=== PATIENT | male | born 1960 | race Caucasian/White ===

== ENCOUNTER 2016-09-17 08:59 | Day surgery (SDC) | payer MEDICARE, OTHER ==
[2016-09-17] MEDS ORDERED: Sodium Chloride 0.9% 5 ML Syringe FLUSH PRN (09:00)
[2016-09-17] MEDS ORDERED: Sodium Chloride 0.9% 1,000 ML IV SCH (09:00)
[2016-09-17] MEDS ORDERED: Albuterol/Ipratropium 3.0-0.5 MG/3 ML Neb Soln NEB ONE (09:59)
[2016-09-17] MEDS ORDERED: EPINEPHrine 1:10,000 1 MG/10 ML Syringe ONE (09:59)
[2016-09-17] MEDS ORDERED: Propofol 200 MG/20 ML SDV ONE ×2 (10:13→10:26)
[2016-09-17] MEDS ORDERED: Midazolam 1 MG/ML 2 ML SDV ONE ×2 (10:13→10:26)
--- NOTE | 2016-09-17 10:49 | PCM.OPNOTE ---
- General Post-Op/Procedure Note Date of Surgery/Procedure: 09/17/16 Operative Procedure(s): Colonoscopy Findings: Normal Anesthesia Technique: MAC Primary Surgeon: Lew Gonzalez Complications: None Condition: Good Free Text/Narrative:: INFORMED CONSENT: Patient is here today for elective colonoscopy. All aspects of this procedure have been discussed with the patient. All possible complications also, including possibility of perforation, infection, pain, bleeding and unknown complications. In the event of perforation patient may need to have abdominal exploration, colon resection, colostomy and even was discussed. Anesthetic complications were handled by anesthesia department. The patient understands fully well. Patient did not have any further questions for me at the end of my interview. The patient wishes for me to proceed. PREOPERATIVE DIAGNOSIS/INDICATIONS: [chronic diarrhea] POSTOPERATIVE DIAGNOSIS: [no evidence for inflammatory bowel disease] INSTRUMENT USED: Olympus videocolonoscope. ASA CLASSIFICATION: [2] ANESTHESIA: Continuous EKG, oximetry and intermittent blood pressure and respiratory monitoring were performed throughout the procedure. IV Versed and Fentanyl were administered. PROCEDURE PERFORMED: Colonoscopy POSITIONS OF PATIENT: Left lateral. RECTUM: Normal. SIGMOID COLON: Normal. DESCENDING COLON: Normal. SPLENIC FLEXURE: Normal. TRANSVERSE COLON: Normal. HEPATIC FLEXURE: Normal. ASCENDING COLON: Normal. CECUM: Normal. ILEOCECAL VALVE: Normal. BIOPSY: None. TOLERANCE: Excellent. COMPLICATIONS: None.
[2016-09-17 11:59] VITALS: BP 121/83
== END 2016-09-17 12:35 | disposition home or self-care (01) ==
LOC: KA.SDS 08:59
PROVIDERS: ATTEND Family Medicine
DX: R19.7 Diarrhea, unspecified (principal); I10 Essential (primary) hypertension; E11.9 Type 2 diabetes mellitus without complications; E78.5 Hyperlipidemia, unspecified; F32.9 Major depressive disorder, single episode, unspecified; Z88.1 Allergy status to other antibiotic agents; Z79.82 Long term (current) use of aspirin; Z79.4 Long term (current) use of insulin; Z79.899 Other long term (current) drug therapy; Z90.49 Acquired absence of other specified parts of digestive tract; Z98.890 Other specified postprocedural states
CPT/HCPCS: 45378; 82962; 94640; J2250; J2704; J7030; 00810

== ENCOUNTER 2017-01-21 15:47 | Inpatient (IN) | payer MEDICARE, OTHER ==
[2017-01-21] MEDS ORDERED: Albuterol/Ipratropium 3.0-0.5 MG/3 ML Neb Soln NEB PRN (17:14)
[2017-01-21] MEDS: Sodium Chloride 0.9% 1,000 ML IV SCH (17:30)
[2017-01-21] MEDS: Insulin Aspart 100 Units/ML 3 ML Pen SUBCUT SCH ×2 (18:29→21:07)
[2017-01-21] MEDS: Morphine 2 MG/ML Syringe IVPUSH PRN (18:36)
[2017-01-21] MEDS: Carvedilol 12.5 MG Tab PO SCH (18:51)
[2017-01-21] MEDS: Sodium Chloride 0.9% 5 ML Syringe FLUSH PRN (18:52)
[2017-01-21] MEDS: Nicotine 21 MG/24 Hr Patch TRDERM SCH (19:28)
[2017-01-21] MEDS: Fluticasone/Salmeterol 250-50 MCG Inhalation Powder 14/Diskus INH SCH (21:04)
[2017-01-21] MEDS: traZODone 50 MG Tab PO SCH (21:05)
[2017-01-21] MEDS: Gabapentin 300 MG Cap PO SCH (21:05)
[2017-01-22] MEDS: Sodium Chloride 0.9% 1,000 ML IV SCH (03:33)
[2017-01-22] MEDS: Morphine 2 MG/ML Syringe IVPUSH PRN ×2 (03:34→09:47)
[2017-01-22] MEDS: Omeprazole 20 MG Cap.CR PO SCH (06:14)
[2017-01-22 07:47] LABS: CHLORIDE,CL 107 mmol/L (98-115); SODIUM,NA 144 mmol/L (136-145)
[2017-01-22] MEDS: Fluticasone/Salmeterol 250-50 MCG Inhalation Powder 14/Diskus INH SCH ×2 (08:43→20:01)
[2017-01-22] MEDS ORDERED: Potassium Chloride 100 ML IV ONE (09:00)
[2017-01-22] MEDS ORDERED: Sodium Chloride 0.9% 500 ML IV SCH (09:00)
[2017-01-22] MEDS ORDERED: Calcium Chloride 10% 1 GM/10 ML Syringe IVPUSH ONE (09:00)
[2017-01-22] MEDS: Insulin Aspart 100 Units/ML 3 ML Pen SUBCUT SCH ×4 (09:45→20:57)
[2017-01-22] MEDS: Aspirin 325 MG Tab.EC PO SCH (09:46)
[2017-01-22] MEDS: Nicotine 21 MG/24 Hr Patch TRDERM SCH (09:46)
[2017-01-22] MEDS ORDERED: Iopamidol 612 MG/ML 75 ML Bottle IV ONE (09:48)
[2017-01-22] MEDS: Hydrochlorothiazide 12.5 MG Cap PO SCH (09:49)
[2017-01-22] MEDS: Gabapentin 300 MG Cap PO SCH ×2 (09:49→20:02)
[2017-01-22] MEDS: Sertraline 50 MG Tab PO SCH (09:50)
[2017-01-22] MEDS: Losartan 50 MG Tab PO SCH (09:57)
[2017-01-22] MEDS: amLODIPine 5 MG Tab PO SCH (09:57)
[2017-01-22] MEDS: Carvedilol 12.5 MG Tab PO SCH ×2 (09:57→17:28)
[2017-01-22] MEDS ORDERED: Sodium Chloride 0.9% 50 ML SDV FLUSH SCH (10:00)
--- NOTE | 2017-01-22 10:09 | PN ---
01/22/2017 PATIENT NAME: ROSMERY SHAW SUBJECTIVE: This is a 56-year-old male patient that was seen in the clinic yesterday by Richa Millan PA-C. The patient states that he had been having severe diarrhea since Thursday. He says he was having too many loose stools that he did not even count. He says he has been having abdominal pain all the way across his abdomen. He denies any fever or chills. He states that he has had hard time trying to keep any liquids down. He would drink some, and then he has diarrhea stool. He denied any nausea or vomiting, but stated that his stomach really hurt, and he could not eat much. Today, he states he still having pain that comes and goes in his abdomen. He says his stools have slowed down. OBJECTIVE: VITAL SIGNS: Today, temperature is 98.6, pulse is 96, blood pressure is 104/60, respiratory rate is 20, and oxygen saturations on room air 92% to 93%. GENERAL: This is a white male, in no acute distress. HEART: Heart tones are regular rate and rhythm. No murmurs identified. LUNGS: Sounds are clear throughout lung ambrose. Diminished at bilateral bases. ABDOMEN: Soft, somewhat tender with deep palpation. Bowel sounds are present. x4. LABORATORY DATA: The patient's lab work that was obtained today. CBC shows a white count within normal range at 8.8. Chemistry panel shows potassium low at 3.3, calcium low at 6.6, albumin is 3.16, and corrected calcium is 7.3. The patient's amylase that was drawn yesterday was within normal range at 32, and lipase within normal range at 119. The rest of the patient's comprehensive metabolic panel is unremarkable. IMPRESSION AND PLAN: 1. Gastroenteritis with elevated liver function tests and dehydration. Plan: We will continue with the patient IV hydration with normal saline at 100 mL/h. We are going to obtain a CT scan of the abdomen and pelvis with contrast this morning here at 10 o'clock. The patient's AST that was obtained yesterday in the clinic was elevated at 50, today to normal range at 27. The patient's ALT that was obtained in the clinic yesterday was elevated at 74. Today, repeated on normal range at 59. The patient can have a clear liquid diet after the CAT scan is completed. For the abdominal pain, he can morphine 1 to 2 mg IV as needed. We are also going to obtain a magnesium level today, this is pending at this time. 2. History of hypertension. Plan: Continue with Coreg 12.5 mg twice a day along with losartan 50 mg daily. Norvasc 10 mg daily, and HCTZ 12.5 mg daily. Blood pressure has been controlled. 3. History of chronic obstructive pulmonary disease. Plan: Continue with Advair twice daily along with DuoNeb as needed. 4. History of peripheral neuropathy. Plan: Continue with gabapentin 300 mg twice a day. 5. Diabetes mellitus type 2. Plan: Continue with blood sugar checks four times a day. We will cover with sliding scale insulin medium dose NovoLog. We will continue with Levemir 20 units subcu at bedtime. 6. History of smoking. Plan: Continue with nicotine patch. 7. Gastroesophageal reflux disease. Plan: Continue with 40 mg omeprazole daily. 8. Hypokalemia. Plan: The patient's potassium level is low today at 3.3. We are going to replace the patient's potassium today with 20 mEq of potassium chloride IV cocktail. Repeat potassium level at 3:00 PM today. 9. History of depression. Plan: Continue with Zoloft 20 mg daily. 10.Insomnia. Plan: Continue with trazodone 75 mg at bedtime as needed for sleep. 11.Hypocalcemia. Plan: The patient's calcium level today on the panel was low at 6.6, corrected calcium came on at 7.3. We are going to give the patient calcium chloride 1 g IV push. Recheck a comprehensive panel tomorrow. 12.Hypomagnesemia. Plan: Magnesium level low at 0.7, 2 grams Magnesium sulfate IV given. Repeat magnesium level at 3:00 PM. /[id number]/MODL MTDD
[2017-01-22] MEDS ORDERED: Magnesium Sulfate/Water 50 ML IV ONE (12:00)
--- NOTE | 2017-01-22 15:41 | PN ---
01/22/2017 PATIENT NAME: ROSMERY SHAW SUBJECTIVE: This is a 56-year-old patient. This progress report is for 22 of January. This is a very pleasant 56-year-old patient was admitted yesterday because of abdominal pain. We had ordered a CAT scan today. The CAT scan shows mild rectal sigmoid and cecal colitis. The patient's abdominal pain is somewhat improved. However in view of the CT scan report and the clinical findings, we will start him on Zosyn 3.375 g every 8 hours and see how he does. We will keep a close eye on him. /[id number]/MODL
[2017-01-22 17:02] LABS: CHLORIDE,CL 105 mmol/L (98-115); SODIUM,NA 139 mmol/L (136-145)
[2017-01-22] MEDS: Piperacillin/Tazobactam/Dext 50 ML IV SCH (17:04)
[2017-01-22] MEDS ORDERED: Potassium Chloride 20 MEQ in Premix Bag 1 BAG IV ONE (17:30)
[2017-01-22] MEDS ORDERED: Calcium Gluconate 1 GM in Sodium Chloride 0.9% 100 ML IV ONE (18:30)
[2017-01-22] MEDS: traZODone 50 MG Tab PO SCH (20:02)
[2017-01-22] MEDS: Insulin Detemir 100 Units/ML 3 ML Pen SUBCUT SCH (21:51)
[2017-01-23] MEDS: Piperacillin/Tazobactam/Dext 50 ML IV SCH ×4 (00:02→23:21)
[2017-01-23] MEDS: Sodium Chloride 0.9% 1,000 ML IV SCH (00:12)
[2017-01-23] MEDS: Omeprazole 20 MG Cap.CR PO SCH (06:48)
[2017-01-23 07:48] LABS: CHLORIDE,CL 111 mmol/L (98-115); SODIUM,NA 147 mmol/L (136-145)
[2017-01-23] MEDS: Insulin Aspart 100 Units/ML 3 ML Pen SUBCUT SCH ×4 (07:59→20:50)
[2017-01-23] MEDS: Nicotine 21 MG/24 Hr Patch TRDERM SCH (08:10)
[2017-01-23] MEDS: Sertraline 50 MG Tab PO SCH (08:11)
[2017-01-23] MEDS: Aspirin 325 MG Tab.EC PO SCH (08:11)
[2017-01-23] MEDS: Gabapentin 300 MG Cap PO SCH ×2 (08:12→20:49)
[2017-01-23] MEDS: Hydrochlorothiazide 12.5 MG Cap PO SCH (08:12)
[2017-01-23] MEDS: Carvedilol 12.5 MG Tab PO SCH ×2 (08:13→17:34)
[2017-01-23] MEDS: Losartan 50 MG Tab PO SCH (08:14)
[2017-01-23] MEDS: amLODIPine 5 MG Tab PO SCH (08:14)
[2017-01-23] MEDS: Fluticasone/Salmeterol 250-50 MCG Inhalation Powder 14/Diskus INH SCH ×2 (08:17→20:45)
[2017-01-23] MEDS: Morphine 2 MG/ML Syringe IVPUSH PRN ×4 (08:32→23:17)
[2017-01-23] MEDS ORDERED: Sodium Chloride 0.45% with KCl 1,000 ML IV SCH ×2 (08:45→10:15)
[2017-01-23] MEDS ORDERED: Calcium Gluconate 10% 1 GM/10 ML SDV IVPUSH ONE (08:48)
--- NOTE | 2017-01-23 10:18 | PN ---
01/23/2017 PATIENT NAME: ROSMERY SHAW SUBJECTIVE: This is a 56-year-old patient that was having multiple diarrhea stools at home for about four to five days, then he presented in the clinic with abdominal pain and diarrhea. The patient states that he is tolerating the clear liquid diet. He says the abdominal pain is doing better. He just feels overall better today. OBJECTIVE: VITAL SIGNS: Today, the patient's weight is 154 pounds. Temperature is 98.9, pulse is 86, blood pressure is 126/64, respiratory rate is 20, and oxygen saturations on 2 L oxygen is 94%. GENERAL: This is an elderly white gentleman, in no acute distress. LUNGS: Sounds are diminished at bilateral bases. Clear at upper lobes. HEART: Sounds are regular rate and rhythm. No murmurs identified. ABDOMEN: Soft and nontender. Bowel sounds are present x4. He does have a little bit of tenderness with deep palpation in the left lower quadrant. LABORATORY DATA: The patient's lab work today; comprehensive metabolic panel shows a sodium slightly high at 147, potassium 3.5, BUN 6, and creatinine 0.68. The patient's calcium is 7.0, corrected calcium 7.8, and magnesium is low at 1.4. The patient's total protein is low at 6.2, and albumin is low at 2.94. Liver enzymes are within normal range. AST is 25, ALT is 50. IMPRESSION AND PLAN: 1. Colitis. Plan: We will continue with Zosyn IV every 6 hours. We are going to change the patient's IV fluids to one-half normal saline with 20 mEq of potassium chloride to decrease the rate to 50 mL an hour from 100 mL an hour. The patient's CAT scan of the abdomen and pelvis that was obtained yesterday did show colitis. Please see the report. The patient's AST and ALT have returned to normal limits. We are going to start the patient on some Lomotil. He can take as needed. We will also going to obtain a Clostridium difficile stool specimen today. We will continue with clear liquid diet. 2. History of hypertension. Plan: Continue with Coreg 12.5 mg twice a day along with losartan 50 mg daily. We are also going to have the patient continue with Norvasc 10 mg daily and HCTZ 12.5 mg daily. Blood pressure has been controlled. 3. History of chronic obstructive pulmonary disease. Plan: Continue with Advair Diskus twice a day along with DuoNeb as needed. 4. History of peripheral neuropathy. Plan: Continue with gabapentin 300 mg twice a day. 5. Diabetes mellitus type 2. Plan: Continue with blood sugar checks four times a day. The patient does have medium dose NovoLog sliding scale ordered for high blood sugars. Also, continue with Levemir 20 units subcu at bedtime. 6. History of smoking. Plan: Continue with nicotine patch. 7. Gastroesophageal reflux disease. Plan: Continue with omeprazole 40 mg daily. 8. Hypokalemia. Plan: The patient's potassium level is 3.5 today. We are going to give the patient some potassium through his IV fluids. We are going to add 20 mEq potassium chloride to his IV fluids. We will repeat a comprehensive metabolic panel in the morning. 9. History of depression. Plan: Continue with Zoloft 20 mg daily. 10.History of insomnia. Plan: Continue with trazodone 75 mg at bedtime as needed for sleep. 11.Hypocalcemia. Plan: The patient's calcium level today is 7.0, corrected calcium of 7.8. We are going to give the patient 1 g of calcium gluconate IV push today and recheck lab work in the morning. 12.Hypomagnesemia. Plan: The patient's magnesium level is low today at 1.4. We are going to start the patient on magnesium oxide 500 mg twice a day, and recheck magnesium level tomorrow morning. /[id number]/MODL MTDD
[2017-01-23] MEDS: Atropine/Diphenoxylate 0.025-2.5 MG Tab PO PRN ×2 (10:30→20:38)
[2017-01-23] MEDS: Magnesium Oxide 500 MG Tab PO SCH ×2 (10:30→20:48)
[2017-01-23] MEDS: Sodium Chloride 0.9% 5 ML Syringe FLUSH PRN (18:57)
[2017-01-23] MEDS: Insulin Detemir 100 Units/ML 3 ML Pen SUBCUT SCH (20:45)
[2017-01-23] MEDS: traZODone 50 MG Tab PO SCH (20:49)
[2017-01-24] MEDS: Morphine 2 MG/ML Syringe IVPUSH PRN (04:40)
[2017-01-24] MEDS: Atropine/Diphenoxylate 0.025-2.5 MG Tab PO PRN ×3 (04:45→21:05)
[2017-01-24] MEDS: Omeprazole 20 MG Cap.CR PO SCH (06:27)
[2017-01-24] MEDS: Insulin Aspart 100 Units/ML 3 ML Pen SUBCUT SCH ×4 (07:19→21:06)
[2017-01-24 07:44] LABS: CHLORIDE,CL 109 mmol/L (98-115); SODIUM,NA 147 mmol/L (136-145)
[2017-01-24] MEDS: Fluticasone/Salmeterol 250-50 MCG Inhalation Powder 14/Diskus INH SCH ×2 (08:05→21:02)
[2017-01-24] MEDS: Piperacillin/Tazobactam/Dext 50 ML IV SCH ×3 (08:05→23:15)
[2017-01-24] MEDS: Losartan 50 MG Tab PO SCH (08:05)
[2017-01-24] MEDS: Carvedilol 12.5 MG Tab PO SCH ×2 (08:05→17:34)
[2017-01-24] MEDS: Aspirin 325 MG Tab.EC PO SCH (08:06)
[2017-01-24] MEDS: Nicotine 21 MG/24 Hr Patch TRDERM SCH (08:06)
[2017-01-24] MEDS: Hydrochlorothiazide 12.5 MG Cap PO SCH (08:07)
[2017-01-24] MEDS: Gabapentin 300 MG Cap PO SCH ×2 (08:07→21:03)
[2017-01-24] MEDS: amLODIPine 5 MG Tab PO SCH (08:07)
[2017-01-24] MEDS: Sertraline 50 MG Tab PO SCH (08:07)
[2017-01-24] MEDS: Magnesium Oxide 500 MG Tab PO SCH ×2 (08:07→21:12)
[2017-01-24] MEDS ORDERED: Magnesium Oxide 500 MG Tab PO ONE (09:30)
[2017-01-24] MEDS ORDERED: Calcium Gluconate 10% 1 GM/10 ML SDV IVPUSH ONE (09:33)
--- NOTE | 2017-01-24 10:07 | PCM.PN ---
- General Info Date of Service: 01/24/17 Subjective Update: Patient reports he is feeling some better, but continues to have generalized abdominal pain. He reports 6 loose stools in the last 24 hours. He has taken the 1/2 tab of lomotil without much relief. He has been able to tolerate his soft diet without nausea or vomiting. Functional Status: Reports: tolerating diet, ambulating, urinating. Denies: pain controlled - Review of Systems General: Denies: Fever HEENT: Reports: headaches Pulmonary: Denies: shortness of breath, cough Cardiovascular: Denies: Chest Pain, Edema Gastrointestinal: Reports: Abdominal pain, Diarrhea. Denies: Decreased appetite , Nausea, Vomiting - Patient Data Vitals - most recent: Last Vital Signs Temp 97.7 F 01/24/17 06:26 Pulse 72 01/24/17 08:05 Resp 16 01/24/17 06:26 BP 139/80 01/24/17 08:07 Pulse Ox 94 L 01/24/17 06:26 Weight - most recent: 154 lb I&O - last 24 hours: Intake & Output 01/23/17 01/24/17 01/24/17 22:59 06:59 14:59 Intake Total 1771 726 Output Total 1075 800 Balance 696 -74 Lab Results last 24 hrs: Laboratory Results - last 24 hr 01/23/17 01/23/17 01/23/17 Range/Units 11:57 17:30 20:36 WBC (5.0-10.0) 10^3/uL RBC (4.50-6.00) 10^6/uL Hgb (13.0-17.0) g/dL Hct (40.0-52.0) % MCV (82.0-92.0) fL MCH (27.0-31.0) pg MCHC (32.0-36.0) g/dL RDW (11.5-14.5) % Plt Count (150-300) 10^3/uL MPV (7.4-10.4) fL Neut % (Auto) (50.0-70.0) % Lymph % (Auto) (20.0-40.0) % Turner % (Auto) (2.0-8.0) % Eos % (Auto) (1.0-3.0) % Baso % (Auto) (0.0-1.0) % Neut # (Auto) (2.5-7.0) 10^3/uL Lymph # (Auto) (1.0-4.0) 10^3/uL Turner # (Auto) (0.1-0.8) 10^3/uL Eos # (Auto) (0.1-0.3) 10^3/uL Baso # (Auto) (0.0-0.1) 10^3/uL Sodium (136-145) mmol/L Potassium (3.3-5.3) mmol/L Chloride (98-115) mmol/L Carbon Dioxide (21.0-32.0) mmol/L BUN (6-25) mg/dL Creatinine (0.51-1.17) mg/dL Est Cr Clr Drug Dosing mL/min Estimated GFR (MDRD) mL/min Glucose (70-110) mg/dL POC Glucose 115 H 90 266 H (74-106) mg/dl Calcium (8.7-10.3) mg/dL Magnesium (1.8-2.4) mg/dL Total Bilirubin (0.2-1.0) mg/dL AST (15-37) U/L ALT (12-78) U/L Alkaline Phosphatase (46-116) IU/L Total Protein (6.4-8.2) g/dL Albumin (3.00-4.80) g/dL 01/24/17 01/24/17 01/24/17 Range/Units 03:49 04:24 06:30 WBC (5.0-10.0) 10^3/uL RBC (4.50-6.00) 10^6/uL Hgb (13.0-17.0) g/dL Hct (40.0-52.0) % MCV (82.0-92.0) fL MCH (27.0-31.0) pg MCHC (32.0-36.0) g/dL RDW (11.5-14.5) % Plt Count (150-300) 10^3/uL MPV (7.4-10.4) fL Neut % (Auto) (50.0-70.0) % Lymph % (Auto) (20.0-40.0) % Turner % (Auto) (2.0-8.0) % Eos % (Auto) (1.0-3.0) % Baso % (Auto) (0.0-1.0) % Neut # (Auto) (2.5-7.0) 10^3/uL Lymph # (Auto) (1.0-4.0) 10^3/uL Turner # (Auto) (0.1-0.8) 10^3/uL Eos # (Auto) (0.1-0.3) 10^3/uL Baso # (Auto) (0.0-0.1) 10^3/uL Sodium (136-145) mmol/L Potassium (3.3-5.3) mmol/L Chloride (98-115) mmol/L Carbon Dioxide (21.0-32.0) mmol/L BUN (6-25) mg/dL Creatinine (0.51-1.17) mg/dL Est Cr Clr Drug Dosing mL/min Estimated GFR (MDRD) mL/min Glucose (70-110) mg/dL POC Glucose 61 L 115 H 88 (74-106) mg/dl Calcium (8.7-10.3) mg/dL Magnesium (1.8-2.4) mg/dL Total Bilirubin (0.2-1.0) mg/dL AST (15-37) U/L ALT (12-78) U/L Alkaline Phosphatase (46-116) IU/L Total Protein (6.4-8.2) g/dL Albumin (3.00-4.80) g/dL 01/24/17 01/24/17 Range/Units 07:05 07:05 WBC 8.8 (5.0-10.0) 10^3/uL RBC 4.18 L (4.50-6.00) 10^6/uL Hgb 12.2 L (13.0-17.0) g/dL Hct 35.3 L (40.0-52.0) % MCV 84.3 (82.0-92.0) fL MCH 29.2 (27.0-31.0) pg MCHC 34.6 (32.0-36.0) g/dL RDW 14.6 H (11.5-14.5) % Plt Count 291 (150-300) 10^3/uL MPV 8.0 (7.4-10.4) fL Neut % (Auto) 66.5 (50.0-70.0) % Lymph % (Auto) 19.8 L (20.0-40.0) % Turner % (Auto) 10.8 H (2.0-8.0) % Eos % (Auto) 2.0 (1.0-3.0) % Baso % (Auto) 0.9 (0.0-1.0) % Neut # (Auto) 5.8 (2.5-7.0) 10^3/uL Lymph # (Auto) 1.7 (1.0-4.0) 10^3/uL Turner # (Auto) 1.0 H (0.1-0.8) 10^3/uL Eos # (Auto) 0.2 (0.1-0.3) 10^3/uL Baso # (Auto) 0.1 (0.0-0.1) 10^3/uL Sodium 147 H (136-145) mmol/L Potassium 3.1 L (3.3-5.3) mmol/L Chloride 109 (98-115) mmol/L Carbon Dioxide 30.5 (21.0-32.0) mmol/L BUN 3 L (6-25) mg/dL Creatinine 0.61 (0.51-1.17) mg/dL Est Cr Clr Drug Dosing 111.88 mL/min Estimated GFR (MDRD) > 60 mL/min Glucose 107 (70-110) mg/dL POC Glucose (74-106) mg/dl Calcium 7.2 L (8.7-10.3) mg/dL Magnesium 1.3 L (1.8-2.4) mg/dL Total Bilirubin 0.3 (0.2-1.0) mg/dL AST 21 (15-37) U/L ALT 42 (12-78) U/L Alkaline Phosphatase 72 (46-116) IU/L Total Protein 6.4 (6.4-8.2) g/dL Albumin 3.06 (3.00-4.80) g/dL Francois Results last 24 hrs: Microbiology 01/23/17 09:50 Clostridium difficile Toxin A&B (M) - Final Stool / Feces - Stool, Liquid NEGATIVE CDIFF TOXIN Med Orders - Current: Current Medications Acetaminophen (Tylenol Extra Strength) 500 mg PO Q6H [facility] Albuterol/Ipratropium (Duoneb 3.0-0.5 Mg/3 Ml) 3 ml NEB Q6HR PRN PRN Reason: Shortness of Breath Last Admin: 01/23/17 08:51 Dose: 3 ml Amlodipine Besylate (Norvasc) 10 mg PO DAILY [facility] Last Admin: 01/24/17 08:07 Dose: 10 mg Aspirin (Ecotrin) 325 mg PO DAILY [facility] Last Admin: 01/24/17 08:06 Dose: 325 mg Calcium Gluconate (Calcium Gluconate) 2 gm IVPUSH ONETIME ONE Stop: 01/24/17 09:34 Carvedilol (Coreg) 12.5 mg PO BIDMEALS [facility] Last Admin: 01/24/17 08:05 Dose: 12.5 mg Diphenoxylate HCl/Atropine (Lomotil 0.025-2.5 Mg) 1 tab PO TID PRN PRN Reason: Diarrhea Gabapentin (Neurontin) 300 mg PO BID [facility] Last Admin: 01/24/17 08:07 Dose: 300 mg Hydrochlorothiazide (Hydrochlorothiazide) 12.5 mg PO DAILY [facility] Last Admin: 01/24/17 08:07 Dose: 12.5 mg Piperacillin/Tazobactam/Dextrose (Zosyn In Dextrose Iso-Osmotic 3.375 Gm) 50 mls @ 100 mls/hr IV Q8H [facility] Last Admin: 01/24/17 08:05 Dose: 100 mls/hr Potassium Chloride/Sodium Chloride (1/2 Ns With 20 Meq Kcl) 1,000 mls @ 25 mls/ hr IV ASDIRECTED [facility] Insulin Aspart (Novolog) 0 unit SUBCUT 0730,1130,1730,2100 [facility] PRN Reason: Protocol Last Admin: 01/24/17 07:19 Dose: Not Given Insulin Detemir (Levemir) 20 unit SUBCUT BEDTIME [facility] Last Admin: 01/23/17 20:45 Dose: 20 units Losartan Potassium (Cozaar) 50 mg PO DAILY [facility] Last Admin: 01/24/17 08:05 Dose: 50 mg Magnesium Oxide (Magnesium Oxide) 1,000 mg PO BID [facility] Magnesium Oxide (Magnesium Oxide) 500 mg PO ONETIME ONE Stop: 01/24/17 09:31 Morphine Sulfate (Morphine) 1 - 2 mg IVPUSH Q4H PRN PRN Reason: Pain Last Admin: 01/24/17 04:40 Dose: 2 mg Nicotine (Habitrol) 21 mg TRDERM DAILY [facility] Last Admin: 01/24/17 08:06 Dose: 21 mg Omeprazole (Omeprazole) 40 mg PO ACBREAKFAST [facility] Last Admin: 01/24/17 06:27 Dose: 40 mg Potassium Chloride (Klor-Con M20) 20 meq PO BID [facility] Fluticasone/Salmeterol (Advair Diskus 250-50) 1 puff INH BID [facility] Last Admin: 01/24/17 08:05 Dose: 1 puff Sertraline HCl (Zoloft) 50 mg PO DAILY [facility] Last Admin: 01/24/17 08:07 Dose: 50 mg Sodium Chloride (Syrex Flush) 5 ml FLUSH Q8HR PRN PRN Reason: Keep Vein Open Last Admin: 01/23/17 18:57 Dose: 5 ml Trazodone HCl (Trazodone) 75 mg PO BEDTIME [facility] Last Admin: 01/23/17 20:49 Dose: 75 mg Discontinued Medications Diphenoxylate HCl/Atropine (Lomotil 0.025-2.5 Mg) 0.5 tab PO TID PRN PRN Reason: Diarrhea Last Admin: 01/24/17 04:45 Dose: 0.5 tab Sodium Chloride (Normal Saline) 1,000 mls @ 100 mls/hr IV ASDIRECTED [facility] Last Admin: 01/23/17 00:12 Dose: 100 mls/hr Sodium Chloride (Normal Saline) 500 mls @ 500 mls/hr IV .BOLUS [facility] Potassium Chloride (Kcl 20 Meq In Water 100 Ml) 100 mls @ 50 mls/hr IV ONETIME ONE Stop: 01/22/17 10:59 Last Admin: 01/22/17 11:18 Dose: 50 mls/hr Calcium Gluconate 1 gm/ Sodium (Chloride) 60 mls @ 360 mls/hr IV ONETIME ONE Stop: 01/22/17 09:39 Last Admin: 01/22/17 10:14 Dose: 360 mls/hr Magnesium Sulfate (Magnesium Sulfate 2 Gm In Water 50 Ml) 50 mls @ 25 mls/hr IV ONETIME ONE Stop: 01/22/17 13:59 Last Admin: 01/22/17 13:33 Dose: 25 mls/hr Calcium Gluconate 1 gm/ Sodium (Chloride) 110 mls @ 100 mls/hr IV ONETIME ONE Stop: 01/22/17 19:35 Last Admin: 01/22/17 19:59 Dose: 100 mls/hr Potassium Chloride 20 meq/ (Premix) 100 mls @ 50 mls/hr IV ONETIME ONE Stop: 01/22/17 19:29 Last Admin: 01/22/17 17:52 Dose: 50 mls/hr Potassium Chloride/Sodium Chloride (1/2 Ns With 20 Meq Kcl) 1,000 mls @ 50 mls/ hr IV ASDIRECTED [facility] Calcium Gluconate 1 gm/ Sodium (Chloride) 60 mls @ 360 mls/hr IV ONETIME ONE Stop: 01/23/17 10:09 Last Admin: 01/23/17 10:32 Dose: 360 mls/hr Potassium Chloride/Sodium Chloride (1/2 Ns With 20 Meq Kcl) 1,000 mls @ 50 mls/ hr IV ASDIRECTED [facility] Last Admin: 01/23/17 13:43 Dose: 50 mls/hr Iopamidol (Isovue-300 (61%)) 75 ml IV ONETIME ONE Stop: 01/22/17 09:49 Last Admin: 01/22/17 11:14 Dose: 75 ml Magnesium Oxide (Magnesium Oxide) 500 mg PO BID [facility] Last Admin: 01/24/17 08:07 Dose: 500 mg Morphine Sulfate (Morphine) 1 - 2 mg IVPUSH Q6H PRN PRN Reason: Abdominal Pain Last Admin: 01/23/17 14:32 Dose: 2 mg Sodium Chloride (Normal Saline) 50 ml FLUSH ASDIRECTED [facility] Stop: 01/22/17 12:00 Last Admin: 01/22/17 11:14 Dose: 50 ml - Exam Quality Assessment: supplemental oxygen (2 liters 93%), DVT prophylaxis (Score of 2-Anthony stockings). No: urine catheter General: alert, oriented, cooperative, no acute distress Lungs: Normal respiratory effort, Decreased breath sounds (throughout). No: Crackles, Rhonchi, Wheezing Cardiovascular: Regular Rate, Regular Rhythm, No Murmurs Abdomen: soft, no distension, guarding, tenderness (generalized), abnormal bowel sounds (hyperactive bowel sounds x 4) Extremities: no edema Skin: warm, dry, intact Neurological: normal speech Psy/Mental Status: alert, normal affect, normal mood. No: anxious - Problem List Review Problem List Initiated/Reviewed/Updated: Yes - My Orders Last 24 Hours: My Active Orders 01/24/17 09:28 Telemetry Monitoring [Cardiac Monitoring] [RC] . DIRECTED 01/24/17 09:30 Acetaminophen [Tylenol Extra Strength] 500 mg PO Q6H Atropine/Diphenoxylate [Lomotil 0.025-2.5 MG] 1 tab PO TID PRN Magnesium Oxide 500 mg PO ONETIME ONE Potassium Chloride [Klor-Con M20] 20 meq PO BID 01/24/17 09:33 Calcium Gluconate 2 gm IVPUSH ONETIME ONE 01/24/17 09:34 Communication Order [RC] ROUTINE 01/24/17 09:45 Sodium Chloride 0.45% with KCl [1/2 NS with 20 mEq KCl] 1,000 ml IV ASDIRECTED 01/24/17 21:00 Magnesium Oxide 1,000 mg PO BID 01/25/17 05:11 COMPREHENSIVE METABOLIC PN,CMP [CHEM] AM MAGNESIUM [CHEM] AM - Plan Plan:: PRIMARY ASSESSMENT/PLAN: Mild rectosigmoid & cecal colitis. Cdiff negative. Continue IV Zosyn. Decrease IV fluids to 1/2 NS with 20 KCL to 25 mL/hr. Patient's oral intake adequate. Continue soft diet. Hold morphine. Trial of tylenol 500 mg po QID for abdominal pain. Change lomotil to 1 tab po TID PRN. Hypokalemia. K 3.1. Add oral potassium 20 mEq BID. Continue IV fluids with potassium. Repeat labs in AM. Patient will be placed on telemetry today. Hypomagnesemia. Mg 1.3. Increase magnesium to 1000 mg po BID. Hypocalcemia. Serum calcium 7.2 with a corrected calcium of 7.9. Will give calcium gluconate 2 gm IV push slowly today. COPD. Chest x-ray revealed asthma versus COPD-no infiltrates or effusions. Patient currently on 2 liter of oxygen at 93%. Will try to discontinue this today as he does not use oxygen at home. Get patient up in halls walking. Continue advair and duonebs. SECONDARY ASSESSMENT/PLAN: IBS-diarrhea predominant. Patient unable to determine if his stools are back to his baseline. He has tried imodium and lomotil in the past for this without improvement. He would be willing to try another medication for this condition. Would consider questran or viberzi after acute infection is resolved. Hypertension, stable. Continue current medication regimen. Peripheral neuropathy. Continue gabapentin. Type 2 diabetes mellitus. Continue accuchecks QID with sliding scale. Continue levemir. Tobacco abuse disorder. Continue nicotine patch. GERD. Continue omeprazole. Depression. Continue zoloft. Insomnia. Continue trazodone. DVT prophylaxis. Score of 2. Anthony stockings applied. Overall plan: Correct electrolyte imbalances and repeat labs in the AM. Continue IV zosyn. Discontinue oxygen. Get patient up in halls today. Monitor pain. The treatment plan was reviewed with Dr. Paez. He is in agreement with the above plan of care.
[2017-01-24] MEDS ORDERED: Calcium Gluconate 2 GM in Sodium Chloride 0.9% 100 ML IV ONE (10:15)
[2017-01-24] MEDS: Potassium Chloride 20 MEQ Tab.ER PO SCH ×2 (10:26→21:02)
[2017-01-24] MEDS: Acetaminophen 500 MG Tab PO SCH ×3 (10:26→21:11)
[2017-01-24] MEDS: Sodium Chloride 0.45% with KCl 1,000 ML IV SCH (10:30)
[2017-01-24] MEDS: traZODone 50 MG Tab PO SCH (21:03)
[2017-01-24] MEDS: Insulin Detemir 100 Units/ML 3 ML Pen SUBCUT SCH (21:04)
[2017-01-25] MEDS: Acetaminophen 500 MG Tab PO SCH ×4 (03:12→21:03)
[2017-01-25] MEDS: Omeprazole 20 MG Cap.CR PO SCH (06:33)
[2017-01-25] MEDS: Insulin Aspart 100 Units/ML 3 ML Pen SUBCUT SCH ×4 (07:03→21:00)
[2017-01-25] MEDS: Carvedilol 12.5 MG Tab PO SCH ×2 (07:28→17:50)
[2017-01-25] MEDS: Piperacillin/Tazobactam/Dext 50 ML IV SCH ×3 (07:29→23:12)
[2017-01-25 07:32] LABS: CHLORIDE,CL 106 mmol/L (98-115); SODIUM,NA 146 mmol/L (136-145)
[2017-01-25] MEDS: Aspirin 325 MG Tab.EC PO SCH (08:06)
[2017-01-25] MEDS: Nicotine 21 MG/24 Hr Patch TRDERM SCH (08:06)
[2017-01-25] MEDS: Losartan 50 MG Tab PO SCH (08:06)
[2017-01-25] MEDS: Fluticasone/Salmeterol 250-50 MCG Inhalation Powder 14/Diskus INH SCH ×2 (08:06→20:55)
[2017-01-25] MEDS: amLODIPine 5 MG Tab PO SCH (08:08)
[2017-01-25] MEDS: Magnesium Oxide 500 MG Tab PO SCH ×2 (08:08→20:56)
[2017-01-25] MEDS: Potassium Chloride 20 MEQ Tab.ER PO SCH ×2 (08:08→20:56)
[2017-01-25] MEDS: Gabapentin 300 MG Cap PO SCH ×2 (08:08→20:58)
[2017-01-25] MEDS: Sertraline 50 MG Tab PO SCH (08:08)
[2017-01-25] MEDS: Sodium Chloride 0.45% with KCl 1,000 ML IV SCH (09:44)
[2017-01-25] MEDS ORDERED: Potassium Chloride 20 MEQ Tab.ER PO ONE (09:46)
[2017-01-25] MEDS: Hydrochlorothiazide 12.5 MG Cap PO SCH (09:47)
[2017-01-25] MEDS ORDERED: Magnesium Sulfate/Water 2 GM in Premix Bag 1 BAG IV ONE ×2 (09:47→21:00)
--- NOTE | 2017-01-25 10:01 | PCM.PN ---
- General Info Date of Service: 01/25/17 Subjective Update: Patient reports he had about 5 stools yesterday and after using the full tablet of lomtil the stools aren't as runny. He reports generalized abdominal tenderness, but hasn't required more than tylenol for this. He has been eating and drinking well. He has been up in the halls and no longer requires oxygen. Functional Status: Reports: pain controlled, tolerating diet, ambulating, urinating. Denies: new symptoms - Review of Systems Pulmonary: Denies: shortness of breath Cardiovascular: Denies: Chest Pain, Edema Gastrointestinal: Reports: Abdominal pain (generalized), Diarrhea (improving). Denies: Decreased appetite, Nausea, Vomiting - Patient Data Vitals - most recent: Last Vital Signs Temp 97.3 F 01/25/17 06:36 Pulse 67 01/25/17 07:28 Resp 14 01/25/17 06:36 BP 143/84 H 01/25/17 08:08 Pulse Ox 93 L 01/25/17 06:36 Weight - most recent: 154 lb I&O - last 24 hours: Intake & Output 01/24/17 01/25/17 01/25/17 22:59 06:59 14:59 Intake Total 1360 636 Output Total 1100 600 Balance 260 36 Lab Results last 24 hrs: Laboratory Results - last 24 hr 01/24/17 01/24/17 01/24/17 Range/Units 11:35 17:36 21:00 Sodium (136-145) mmol/L Potassium (3.3-5.3) mmol/L Chloride (98-115) mmol/L Carbon Dioxide (21.0-32.0) mmol/L BUN (6-25) mg/dL Creatinine (0.51-1.17) mg/dL Est Cr Clr Drug Dosing mL/min Estimated GFR (MDRD) mL/min Glucose (70-110) mg/dL POC Glucose 212 H 110 H 177 H (74-106) mg/dl Calcium (8.7-10.3) mg/dL Magnesium (1.8-2.4) mg/dL Total Bilirubin (0.2-1.0) mg/dL AST (15-37) U/L ALT (12-78) U/L Alkaline Phosphatase (46-116) IU/L Total Protein (6.4-8.2) g/dL Albumin (3.00-4.80) g/dL 01/25/17 01/25/17 01/25/17 Range/Units 03:14 06:29 07:00 Sodium 146 H (136-145) mmol/L Potassium 3.2 L (3.3-5.3) mmol/L Chloride 106 (98-115) mmol/L Carbon Dioxide 34.4 H (21.0-32.0) mmol/L BUN 7 (6-25) mg/dL Creatinine 0.64 (0.51-1.17) mg/dL Est Cr Clr Drug Dosing 106.63 mL/min Estimated GFR (MDRD) > 60 mL/min Glucose 99 (70-110) mg/dL POC Glucose 81 100 (74-106) mg/dl Calcium 8.1 L (8.7-10.3) mg/dL Magnesium 1.2 L (1.8-2.4) mg/dL Total Bilirubin 0.4 (0.2-1.0) mg/dL AST 15 (15-37) U/L ALT 34 (12-78) U/L Alkaline Phosphatase 70 (46-116) IU/L Total Protein 6.5 (6.4-8.2) g/dL Albumin 3.06 (3.00-4.80) g/dL Med Orders - Current: Current Medications Acetaminophen (Tylenol Extra Strength) 500 mg PO Q6H [facility] Last Admin: 01/25/17 09:44 Dose: 500 mg Albuterol/Ipratropium (Duoneb 3.0-0.5 Mg/3 Ml) 3 ml NEB Q6HR PRN PRN Reason: Shortness of Breath Last Admin: 01/23/17 08:51 Dose: 3 ml Amlodipine Besylate (Norvasc) 10 mg PO DAILY [facility] Last Admin: 01/25/17 08:08 Dose: 10 mg Aspirin (Ecotrin) 325 mg PO DAILY [facility] Last Admin: 01/25/17 08:06 Dose: 325 mg Calcium Citrate (Calcium Citrate + D) 1 tab PO BID [facility] Carvedilol (Coreg) 12.5 mg PO BIDMEALS [facility] Last Admin: 01/25/17 07:28 Dose: 12.5 mg Diphenoxylate HCl/Atropine (Lomotil 0.025-2.5 Mg) 1 tab PO TID PRN PRN Reason: Diarrhea Last Admin: 01/24/17 21:05 Dose: 1 tab Gabapentin (Neurontin) 300 mg PO BID [facility] Last Admin: 01/25/17 08:08 Dose: 300 mg Hydrochlorothiazide (Hydrochlorothiazide) 12.5 mg PO DAILY [facility] Last Admin: 01/25/17 09:47 Dose: Not Given Piperacillin/Tazobactam/Dextrose (Zosyn In Dextrose Iso-Osmotic 3.375 Gm) 50 mls @ 100 mls/hr IV Q8H [facility] Last Admin: 01/25/17 07:29 Dose: 100 mls/hr Magnesium Sulfate 2 gm/ Premix 50 mls @ 150 mls/hr IV ONETIME ONE Stop: 01/25/17 10:06 Magnesium Sulfate 2 gm/ Premix 50 mls @ 150 mls/hr IV ONETIME ONE Stop: 01/25/17 21:19 Insulin Aspart (Novolog) 0 unit SUBCUT 0730,1130,1730,2100 [facility] PRN Reason: Protocol Last Admin: 01/25/17 07:03 Dose: Not Given Insulin Detemir (Levemir) 20 unit SUBCUT BEDTIME [facility] Last Admin: 01/24/17 21:04 Dose: 20 units Losartan Potassium (Cozaar) 50 mg PO DAILY [facility] Last Admin: 01/25/17 08:06 Dose: 50 mg Magnesium Oxide (Magnesium Oxide) 1,000 mg PO BID [facility] Last Admin: 01/25/17 08:08 Dose: 1,000 mg Nicotine (Habitrol) 21 mg TRDERM DAILY [facility] Last Admin: 01/25/17 08:06 Dose: 21 mg Omeprazole (Omeprazole) 40 mg PO ACBREAKFAST [facility] Last Admin: 01/25/17 06:33 Dose: 40 mg Potassium Chloride (Klor-Con M20) 20 meq PO BID [facility] Last Admin: 01/25/17 08:08 Dose: 20 meq Fluticasone/Salmeterol (Advair Diskus 250-50) 1 puff INH BID [facility] Last Admin: 01/25/17 08:06 Dose: 1 puff Sertraline HCl (Zoloft) 50 mg PO DAILY [facility] Last Admin: 01/25/17 08:08 Dose: 50 mg Sodium Chloride (Syrex Flush) 5 ml FLUSH Q8HR PRN PRN Reason: Keep Vein Open Last Admin: 01/23/17 18:57 Dose: 5 ml Trazodone HCl (Trazodone) 75 mg PO BEDTIME [facility] Last Admin: 01/24/17 21:03 Dose: 75 mg Discontinued Medications Diphenoxylate HCl/Atropine (Lomotil 0.025-2.5 Mg) 0.5 tab PO TID PRN PRN Reason: Diarrhea Last Admin: 01/24/17 04:45 Dose: 0.5 tab Sodium Chloride (Normal Saline) 1,000 mls @ 100 mls/hr IV ASDIRECTED [facility] Last Admin: 01/23/17 00:12 Dose: 100 mls/hr Sodium Chloride (Normal Saline) 500 mls @ 500 mls/hr IV .BOLUS [facility] Potassium Chloride (Kcl 20 Meq In Water 100 Ml) 100 mls @ 50 mls/hr IV ONETIME ONE Stop: 01/22/17 10:59 Last Admin: 01/22/17 11:18 Dose: 50 mls/hr Calcium Gluconate 1 gm/ Sodium (Chloride) 60 mls @ 360 mls/hr IV ONETIME ONE Stop: 01/22/17 09:39 Last Admin: 01/22/17 10:14 Dose: 360 mls/hr Magnesium Sulfate (Magnesium Sulfate 2 Gm In Water 50 Ml) 50 mls @ 25 mls/hr IV ONETIME ONE Stop: 01/22/17 13:59 Last Admin: 01/22/17 13:33 Dose: 25 mls/hr Calcium Gluconate 1 gm/ Sodium (Chloride) 110 mls @ 100 mls/hr IV ONETIME ONE Stop: 01/22/17 19:35 Last Admin: 01/22/17 19:59 Dose: 100 mls/hr Potassium Chloride 20 meq/ (Premix) 100 mls @ 50 mls/hr IV ONETIME ONE Stop: 01/22/17 19:29 Last Admin: 01/22/17 17:52 Dose: 50 mls/hr Potassium Chloride/Sodium Chloride (1/2 Ns With 20 Meq Kcl) 1,000 mls @ 50 mls/ hr IV ASDIRECTED [facility] Calcium Gluconate 1 gm/ Sodium (Chloride) 60 mls @ 360 mls/hr IV ONETIME ONE Stop: 01/23/17 10:09 Last Admin: 01/23/17 10:32 Dose: 360 mls/hr Potassium Chloride/Sodium Chloride (1/2 Ns With 20 Meq Kcl) 1,000 mls @ 50 mls/ hr IV ASDIRECTED [facility] Last Admin: 01/23/17 13:43 Dose: 50 mls/hr Potassium Chloride/Sodium Chloride (1/2 Ns With 20 Meq Kcl) 1,000 mls @ 25 mls/ hr IV ASDIRECTED [facility] Last Admin: 01/25/17 09:44 Dose: 25 mls/hr Calcium Gluconate 2 gm/ Sodium (Chloride) 120 mls @ 120 mls/hr IV ONETIME ONE Stop: 01/24/17 11:14 Last Admin: 01/24/17 10:28 Dose: 120 mls/hr Iopamidol (Isovue-300 (61%)) 75 ml IV ONETIME ONE Stop: 01/22/17 09:49 Last Admin: 01/22/17 11:14 Dose: 75 ml Magnesium Oxide (Magnesium Oxide) 500 mg PO BID [facility] Last Admin: 01/24/17 08:07 Dose: 500 mg Magnesium Oxide (Magnesium Oxide) 500 mg PO ONETIME ONE Stop: 01/24/17 09:31 Last Admin: 01/24/17 10:26 Dose: 500 mg Morphine Sulfate (Morphine) 1 - 2 mg IVPUSH Q6H PRN PRN Reason: Abdominal Pain Last Admin: 01/23/17 14:32 Dose: 2 mg Morphine Sulfate (Morphine) 1 - 2 mg IVPUSH Q4H PRN PRN Reason: Pain Last Admin: 01/24/17 04:40 Dose: 2 mg Potassium Chloride (Klor-Con M20) 20 meq PO ONETIME ONE Stop: 01/25/17 09:47 Sodium Chloride (Normal Saline) [facility] Stop: 01/22/17 12:00 Last Admin: 01/22/17 11:14 Dose: 50 ml - Exam Quality Assessment: DVT prophylaxis (Freddy stockings). No: supplemental oxygen, urine catheter General: alert, oriented, cooperative, no acute distress Lungs: Clear to auscultation, Normal respiratory effort Cardiovascular: Regular Rate, Regular Rhythm Abdomen: bowel sounds present, soft, no distension, tenderness (generalized). No: guarding Extremities: no edema Neurological: normal gait, normal speech Psy/Mental Status: alert, normal affect, normal mood. No: anxious - Problem List Review Problem List Initiated/Reviewed/Updated: Yes - My Orders Last 24 Hours: My Active Orders 01/24/17 09:28 Telemetry Monitoring [Cardiac Monitoring] [RC] 0300,0700,1100,1500,1900,2300 01/24/17 09:30 Atropine/Diphenoxylate [Lomotil 0.025-2.5 MG] 1 tab PO TID PRN Potassium Chloride [Klor-Con M20] 20 meq PO BID 01/24/17 09:34 Communication Order [RC] ROUTINE 01/24/17 09:55 Antiembolic Devices [RC] 0900,2100 FREDDY Hose [Antiembolic Hose] [OM.PC] Routine 01/24/17 10:00 Acetaminophen [Tylenol Extra Strength] 500 mg PO Q6H 01/24/17 21:00 Magnesium Oxide 1,000 mg PO BID 01/24/17 Lunch ADA Diabetic [[place] [employer] Diet] [DIET] 01/25/17 07:00 ESR [SEDIMENTATION RATE MANUAL] [HEME] Routine 01/25/17 09:45 FECAL LACTOFERRIN [MREF] Routine 01/25/17 09:47 Magnesium Sulfate/Water [Magnesium Sulfate 2 GM in Water 50 ML] 2 gm Premix Bag 1 bag IV ONETIME 01/25/17 10:00 Calcium Citrate/Vitamin D3 [Calcium Citrate + D] 1 tab PO BID 01/25/17 21:00 Magnesium Sulfate/Water [Magnesium Sulfate 2 GM in Water 50 ML] 2 gm Premix Bag 1 bag IV ONETIME 01/26/17 05:11 BASIC METABOLIC PANEL,BMP [CHEM] AM - Plan Plan:: PRIMARY ASSESSMENT/PLAN: Mild rectosigmoid & cecal colitis, improving. Cdiff negative. Will check an ESR and fecal lactoferrin level today. Continue with IV Zosyn. Discontinue IV fluids and saline lock. Continue soft diet. Continue tylenol QID and lomotil 1 tab TID PRN. Hypokalemia. K 3.2. Will give potassium 40 mEq po this AM and 20 mEq po this evening. Hold HCTZ. Repeat BMP in AM. Continue with telemetry. Hypomagnesemia. Mg 1.2. Continue magnesium 1000 mg po BID. Will add magnesium sulfate 2 gm IV BID. Decrease omeprazole to 20 mg daily. Hypocalcemia, improving. Serum calcium 8.1 with a corrected calcium of 8.9. Will add calcium with vitamin D 1 tab BID. COPD, stable. Recent chest x-ray revealed asthma versus COPD-no infiltrates or effusions. Patient no longer requiring oxygen. He is up moving in the halls without issue. Continue advair and duonebs PRN. SECONDARY ASSESSMENT/PLAN: IBS-diarrhea predominant. He has tried imodium and lomotil in the past for this without improvement. He would be willing to try another medication for this condition. Would consider questran or viberzi after acute infection is resolved. Hypertension, stable. Continue current medication regimen except holding HCTZ due to electrolyte disturbances. Peripheral neuropathy. Continue gabapentin. Type 2 diabetes mellitus. Continue accuchecks QID with sliding scale. Continue levemir. Continue holding metformin. Tobacco abuse disorder. Continue nicotine patch. GERD. Decrease omeprazole to 20 mg daily. Depression. Continue zoloft. Insomnia. Continue trazodone. DVT prophylaxis. Score of 2. Freddy stockings applied. Overall plan: Correct electrolyte imbalances and repeat labs in the AM. Continue IV zosyn. Continue telemetry monitoring. The treatment plan was reviewed with Dr. Paez. He is in agreement with the above plan of care.
[2017-01-25] MEDS: Calcium Citrate/Vitamin D3 315 MG-250 Unit Tab PO SCH ×2 (10:15→20:56)
[2017-01-25] MEDS: Atropine/Diphenoxylate 0.025-2.5 MG Tab PO PRN (19:52)
[2017-01-25] MEDS: Insulin Detemir 100 Units/ML 3 ML Pen SUBCUT SCH (20:58)
[2017-01-25] MEDS: traZODone 50 MG Tab PO SCH (20:58)
[2017-01-26] MEDS: Acetaminophen 500 MG Tab PO SCH ×4 (03:10→21:07)
[2017-01-26] MEDS: Omeprazole 20 MG Cap.CR PO SCH (06:29)
[2017-01-26 08:21] LABS: CHLORIDE,CL 105 mmol/L (98-115); SODIUM,NA 145 mmol/L (136-145)
[2017-01-26] MEDS: Fluticasone/Salmeterol 250-50 MCG Inhalation Powder 14/Diskus INH SCH ×2 (08:41→20:56)
[2017-01-26] MEDS: Insulin Aspart 100 Units/ML 3 ML Pen SUBCUT SCH ×4 (08:42→21:06)
[2017-01-26] MEDS: Carvedilol 12.5 MG Tab PO SCH ×2 (08:42→18:02)
[2017-01-26] MEDS: Losartan 50 MG Tab PO SCH (08:44)
[2017-01-26] MEDS: Aspirin 325 MG Tab.EC PO SCH (08:44)
[2017-01-26] MEDS: Nicotine 21 MG/24 Hr Patch TRDERM SCH (08:44)
[2017-01-26] MEDS: Gabapentin 300 MG Cap PO SCH ×2 (08:45→20:59)
[2017-01-26] MEDS: Sertraline 50 MG Tab PO SCH (08:45)
[2017-01-26] MEDS: Magnesium Oxide 500 MG Tab PO SCH ×2 (08:45→20:59)
[2017-01-26] MEDS: amLODIPine 5 MG Tab PO SCH (08:46)
[2017-01-26] MEDS: Calcium Citrate/Vitamin D3 315 MG-250 Unit Tab PO SCH ×2 (08:55→20:59)
[2017-01-26] MEDS: Potassium Chloride 20 MEQ Tab.ER PO SCH ×2 (08:55→20:59)
[2017-01-26] MEDS: Piperacillin/Tazobactam/Dext 50 ML IV SCH ×3 (08:56→23:25)
[2017-01-26] MEDS ORDERED: Atropine 0.1 MG/ML 10 ML Syringe IVPUSH PRN (09:35)
[2017-01-26] MEDS ORDERED: Lidocaine 2% 100 MG/5 ML Syringe IVPUSH PRN (09:35)
[2017-01-26] MEDS ORDERED: Nitroglycerin 0.4 MG Tab.SL SL PRN (09:35)
[2017-01-26] MEDS ORDERED: EPINEPHrine 1:10,000 1 MG/10 ML Syringe IVPUSH PRN (09:35)
[2017-01-26] MEDS: Loperamide 2 MG Cap PO PRN (09:41)
[2017-01-26] MEDS: Dicyclomine 20 MG/2 ML SDV IM PRN ×2 (10:31→17:26)
--- NOTE | 2017-01-26 10:40 | PN ---
01/26/2017 PATIENT NAME: ROSMERY SHAW SUBJECTIVE: This is a 56-year-old gentleman, who has a history of irritable bowel syndrome, that was at home having abdominal pain and also diarrhea. The patient was having about 10 loose stools a day for about four to five days until he came in clinic with diarrhea and abdominal pain. The patient was admitted to the hospital at that time. Today, the patient states that he still has some pain on his left side that comes and goes. He said last night, he is having a lot of cramping in his left abdomen. He says he had a stool about three in the morning, he has had three loose stools this morning. He says he is still having about six to eight stools a day. He says some were just watery stool, some were semi-soft. He denies any fever or chills. He has been tolerating a regular diet at this time. OBJECTIVE: VITAL SIGNS: Today, blood pressure is 144/78, pulse is 72, temperature is 98.6, respiratory rate 16, oxygen saturations on room air 92%. GENERAL: This is a white gentleman in no acute distress. HEART: Tones are regular rate and rhythm. No murmurs identified. LUNGS: Sounds are clear throughout lung ambrose. Slightly diminished at bilateral bases. ABDOMEN: Soft, somewhat tender with deep palpation. Bowel sounds are active x4. No distension. LABORATORY DATA: The patient's lab work that was obtained today, the patient's chemistry panel shows a sodium within normal range at 145, potassium is 3.3, BUN is 11, creatinine is 0.62, GFR is greater than 60. Calcium is 8.2, albumin is 3.22, corrected calcium is 8.8. The patient's liver enzymes are within normal range. The patient's magnesium is just slightly low at 1.7. IMPRESSION AND PLAN: 1. Colitis. Plan: The patient's CT of the abdomen that was performed last week did show mild rectal sigmoid and cecal colitis. We are going to continue the patient on IV Zosyn every 6 hours. The patient's last white count was done last Thursday which was in normal range at 8.8. The patient's Clostridium difficile was negative. The patient's stool for WBCs is pending at this time. The patient is tolerating a regular diet which is a diabetic diet at this time. IV fluids have been discontinued. The patient's liver function tests are within normal range. I am going to discontinue the patient's Lomotil, he says it does not work, and I put him on Imodium as needed. 2. History of hypertension. Plan: The patient's blood pressures been fairly well controlled in the hospital. We are going to continue with Coreg 12.5 mg twice a day along with losartan 50 mg daily. We will continue with Norvasc 10 mg daily along with HCTZ 12.5 mg daily. 3. History of chronic obstructive pulmonary disease. Plan: Continue with Advair Diskus twice a day along with DuoNeb as needed. The patient's oxygen saturations usually run in the high 80s or low 90s on room air. He denies any shortness of breath or cough. 4. History of peripheral neuropathy. Plan: Continue with gabapentin 300 mg twice a day. 5. Diabetes mellitus type 2. Plan: Continue with blood sugar checks four times a day. The patient does have medium dose NovoLog sliding scale insulin ordered for high blood sugars. We will continue with Levemir 20 units subcu at bedtime. 6. History of smoking cigarettes. Plan: Continue with nicotine patch while here in the hospital. 7. Gastroesophageal reflux disease. Plan: Continue with omeprazole 40 mg daily in the morning. 8. Hypokalemia. Plan: The patient's potassium level today is slightly low at 3.3. We will continue with potassium chloride 20 mEq orally twice a day. We will recheck a comprehensive metabolic panel in the morning. 9. History of depression. Plan: Continue with Zoloft 20 mg daily. 10.History of insomnia. Plan: Continue with trazodone 75 mg at bedtime as needed for sleep. 11.Hypocalcemia, resolved. The patient's calcium level today is 8.2, and his corrected calcium is 8.8. We will continue the patient on calcium citrate one tab twice a day. 12.Hypomagnesemia. Plan: The patient's magnesium level today is still slightly low at 1.7. We will continue the patient on magnesium oxide 1000 mg twice a day orally. We will repeat magnesium level tomorrow morning. 13.Recent episode of ventricular tachycardia. Plan: The patient did have an episode of short spurt of the ventricular tachycardia/spurt of 5 PVCS while he was getting the magnesium sulfate IV infusion, no longer give him IV magnesium sulfate infusions, we will keep him with the magnesium oxide orally. The patient's magnesium level is almost back to normal. We will continue the patient on telemetry. /[id number]/MODL MTDD
[2017-01-26] MEDS ORDERED: Sodium Chloride 0.9% 50 ML ONE (17:01)
[2017-01-26] MEDS: traZODone 50 MG Tab PO SCH (20:58)
[2017-01-26] MEDS: Insulin Detemir 100 Units/ML 3 ML Pen SUBCUT SCH (21:04)
[2017-01-27] MEDS: Acetaminophen 500 MG Tab PO SCH ×4 (04:30→21:02)
[2017-01-27] MEDS: Omeprazole 20 MG Cap.CR PO SCH (06:26)
[2017-01-27] MEDS: Dicyclomine 20 MG/2 ML SDV IM PRN (06:28)
[2017-01-27 07:50] LABS: CHLORIDE,CL 105 mmol/L (98-115); SODIUM,NA 145 mmol/L (136-145)
[2017-01-27] MEDS: Insulin Aspart 100 Units/ML 3 ML Pen SUBCUT SCH ×4 (08:39→21:00)
[2017-01-27] MEDS: Fluticasone/Salmeterol 250-50 MCG Inhalation Powder 14/Diskus INH SCH ×2 (08:39→20:54)
[2017-01-27] MEDS: Nicotine 21 MG/24 Hr Patch TRDERM SCH (08:39)
[2017-01-27] MEDS: Magnesium Oxide 500 MG Tab PO SCH ×2 (08:40→20:54)
[2017-01-27] MEDS: Calcium Citrate/Vitamin D3 315 MG-250 Unit Tab PO SCH ×2 (08:40→20:54)
[2017-01-27] MEDS: Losartan 50 MG Tab PO SCH (08:40)
[2017-01-27] MEDS: Carvedilol 12.5 MG Tab PO SCH ×2 (08:41→17:02)
[2017-01-27] MEDS: amLODIPine 5 MG Tab PO SCH (08:41)
[2017-01-27] MEDS: Aspirin 325 MG Tab.EC PO SCH (08:41)
[2017-01-27] MEDS: Potassium Chloride 20 MEQ Tab.ER PO SCH ×2 (08:42→20:50)
[2017-01-27] MEDS: Sertraline 50 MG Tab PO SCH (08:43)
[2017-01-27] MEDS: Gabapentin 300 MG Cap PO SCH ×2 (08:44→20:50)
[2017-01-27] MEDS: Piperacillin/Tazobactam/Dext 50 ML IV SCH ×4 (09:45→23:06)
--- NOTE | 2017-01-27 10:34 | PN ---
01/27/2017 PATIENT NAME: ROSMERY SHAW CHIEF COMPLAINT: Overall has somewhat improved, has having less bowel movements approximately five a day or six a day now, he states his baseline is about five a day. It appears that the medication Bentyl that was added to his medication treatment regimen yesterday has improved his overall abdominal pain. This patient was admitted due to ongoing abdominal pain, large amount of stool up to 10 a day for several days prior to him coming into the clinic with some left- sided abdominal pain, severe cramping. CT of the abdomen did show a colitis, mild rectal sigmoid, and cecal colitis. He was started on broad-spectrum IV Zosyn. C diff was negative. PHYSICAL EXAMINATION: VITAL SIGNS: Temperature afebrile, blood pressure slightly high this morning, this was prior to his morning medications 147/94, heart rate 70 and regular, respiratory rate 18, O2 sats 92%, this is on room air. HEART: Regular rate and rhythm. No murmurs identified. ABDOMEN: It is soft, however, left upper quadrant some tenderness. Bowel sounds are hyperactive. No abdominal distention noted. GENERAL: The patient is alert, he is not in any acute distress. He does have COPD. He does not have any respiratory distress. LABORATORY DATA: Sodium and potassium are normal. BUN and creatinine normal. GFR 60. He has had a low magnesium, it is 1.6 now, he is on 1000 mg of magnesium oxide b.i.d. Liver functions are normal. Microbiology: C diff toxin was negative. Stool lactoferrin was positive, which is a marker for fecal leukocytes. IMPRESSION/PLAN: 1. Colitis with concomitant irritable bowel syndrome. This seems to be improving. We will continue with Zosyn. Changed his Bentyl to p.o. since he is tolerating orals. He is tolerating his regular diet, we will continue with this. Clostridium difficile negative. Lactoferrin is positive. Overall, the patient is doing better. Continue with the Imodium. 2. Hypertension. Systolic blood pressure is elevated. I will restart his hydrochlorothiazide. He does have adequate intake and output. Continue with his Norvasc and his losartan. 3. Hypomagnesemia. His magnesium is 1.6 slightly low, due to possible malabsorption. We will place him on 500 mg p.o. t.i.d. 4. Recent episode of ventricular tachycardia, questionable, this is possible due to magnesium, uncertain at this time. He has been on telemetry. He has no aberrancy or no cardiac ectopy sense. We will remove telemetry. 5. Chronic problems, history of chronic obstructive pulmonary disease. He is on Advair Diskus and on DuoNeb. He is doing well. Continue with current respiratory medication. 6. History of peripheral neuropathy. He is on gabapentin. 7. Diabetes mellitus, this is well controlled. 8. Tobacco dependency. He is on nicotine patch. 9. Gastroesophageal reflux disease, omeprazole 40 mg. 10.Depression, this seems to be stable, continue with Zoloft. 11.History of insomnia, he is on trazodone at bedtime. OVERALL PLAN: Adjust his magnesium, discontinue telemetry, continue with Bentyl, restart back his hydrochlorothiazide, continue with IV Zosyn, most likely the patient could be discharged within 24 hours. /[id number]/MODL
[2017-01-27] MEDS: Loperamide 2 MG Cap PO PRN ×2 (16:18→20:53)
[2017-01-27] MEDS: Dicyclomine 10 MG Cap PO PRN ×2 (17:01→23:04)
[2017-01-27] MEDS: traZODone 50 MG Tab PO SCH (20:49)
[2017-01-27] MEDS: Insulin Detemir 100 Units/ML 3 ML Pen SUBCUT SCH (20:57)
[2017-01-28] MEDS: Acetaminophen 500 MG Tab PO SCH ×2 (04:00→09:14)
[2017-01-28] MEDS: Omeprazole 20 MG Cap.CR PO SCH (06:35)
[2017-01-28 06:59] VITALS: BP 146/81
[2017-01-28] MEDS: Insulin Aspart 100 Units/ML 3 ML Pen SUBCUT SCH ×2 (07:29→11:53)
[2017-01-28] MEDS: Piperacillin/Tazobactam/Dext 50 ML IV SCH (08:22)
[2017-01-28] MEDS: Dicyclomine 10 MG Cap PO PRN (09:06)
[2017-01-28] MEDS: Loperamide 2 MG Cap PO PRN (09:07)
[2017-01-28] MEDS: Fluticasone/Salmeterol 250-50 MCG Inhalation Powder 14/Diskus INH SCH (09:08)
[2017-01-28] MEDS: Calcium Citrate/Vitamin D3 315 MG-250 Unit Tab PO SCH (09:09)
[2017-01-28] MEDS: Carvedilol 12.5 MG Tab PO SCH (09:09)
[2017-01-28] MEDS: Losartan 50 MG Tab PO SCH (09:09)
[2017-01-28] MEDS: Aspirin 325 MG Tab.EC PO SCH (09:11)
[2017-01-28] MEDS: Magnesium Oxide 500 MG Tab PO SCH (09:12)
[2017-01-28] MEDS: Potassium Chloride 20 MEQ Tab.ER PO SCH (09:12)
[2017-01-28] MEDS: amLODIPine 5 MG Tab PO SCH (09:13)
[2017-01-28] MEDS: Gabapentin 300 MG Cap PO SCH (09:13)
[2017-01-28] MEDS: Sertraline 50 MG Tab PO SCH (09:14)
[2017-01-28] MEDS: Nicotine 21 MG/24 Hr Patch TRDERM SCH (09:15)
[2017-01-28] MEDS: Hydrochlorothiazide 12.5 MG Cap PO SCH (09:18)
[2017-01-28] MEDS ORDERED: Potassium Bicarbonate/Potassium Chloride 25 MEQ Tab.Eff PO ONE (13:25)
--- NOTE | 2017-01-29 11:29 | DISCH ---
The patient was admitted in this inpatient status on 01/21/2017, and discharged from inpatient on 01/28/2017. FINAL DIAGNOSES: 1. Colitis with exacerbation of irritable bowel syndrome. Other chronic problems include: 1. Hypertension, controlled. 2. Hypomagnesemia, slightly improved. 3. Chronic obstructive pulmonary disease. 4. Peripheral neuropathy, diabetes mellitus, we will start back on metformin. 5. Tobacco dependency. 6. Gastroesophageal reflux disease. 7. Depression. 8. Insomnia. BRIEF HISTORY: This 56-year-old gentleman was initially admitted to the [facility]. He came in complaining of abdominal pain for about four days prior to him coming in. He had left lower quadrant abdominal pain with significant diarrhea, and watery mucus stools, and increase in abdominal flatus for about four days prior to that, he did not have any blood in the stool. He was taking Imodium, it was not helping, he had no appetite, he had about a 20 pounds weight loss in the past year and however, 10 pounds over the past two months prior to this admission. He does have a history of irritable bowel syndrome along with a cholecystectomy. He did have an abdominal CT which showed a mild rectosigmoid and cecal colitis. Labs, fecal lactoferrin positive. Negative for C. diff. HOSPITAL COURSE: The hospital course went fairly well. He did have some ongoing abdominal pain. His stools did seem to improve significantly when Bentyl antispasmodic was added this was given p.r.n. He did have hypokalemia this was replaced with gentle potassium. He did have hypomagnesemia that was replaced. At one time requiring magnesium sulfate 2 g IV twice. He did have some possible complications from this. There was a slight run of ventricular tachycardia, however, that is questionable. However, we did continue with oral magnesium. Serum calcium corrected to 8.9. We did add calcium with vitamin D one tab twice a day for his COPD, this was stable. Recent chest x-ray revealed that he had asthma versus COPD, however, he had no infiltrates or effusions. He was no longer requiring oxygen. He was moving around the halls quite well. His electrolytes were replaced. We placed him on IV Zosyn. He was on telemetry monitoring, that was taken off within 24 hours of admission. He received six doses of IV Zosyn. His metformin was held, due to him receiving contrast that was started back up the day of admission. His hydrochlorothiazide was held, that was started at 24 hours prior to him being discharge. Vital signs on discharge, temperature 97.8, blood pressure 146/81, heart rate 64, O2 sats 90 on room air. Microbiology negative for C. diff. Stool lactoferrin was positive. He never became hemodynamically unstable. He was able to tolerate back to his normal diet. He had no vomiting. He had no chest pain. His abdominal pain on discharge was much improved, however, he does have some ongoing left upper quadrant abdominal pain, however, much improved. He had good bowel tones. Nondistended. He never required a nasogastric tube. MEDICATION ADJUSTMENTS: Bentyl 20 mg p.o. t.i.d. for the next one to two days scheduled and then as needed for abdominal cramps and bloating. Continue with probiotics. Start back up on his metformin. DISCHARGE DISPOSITION: The patient will be discharged from the hospital. He will follow up with Dr. Gonzalez next week. He is to report any worsening abdominal pain, bloating, fever, or worsening diarrhea. In November, he was given instructions he may have to hold his metformin, and then take if he has increased abdominal pain however. He was perform self-monitor blood glucose checks more frequently. Increase his Lantus to 2 units if he does holds his metformin. CONSIDERATIONS AT FOLLOWUP: Consider Olamide or Gladys. assess his magnesium level and the need for calcium and vitamin D. /[id number]/MODL MTDD
== END 2017-01-28 13:10 | disposition home or self-care (01) | DRG 392 ==
LOC: KA.MS 15:47
PROVIDERS: ADMIT Physician Assistant Medical; ATTEND Family Medicine
DX: K52.9 Noninfective gastroenteritis and colitis, unspecified (principal); R10.31 Right lower quadrant pain; E86.0 Dehydration; E87.6 Hypokalemia; E83.51 Hypocalcemia; E83.42 Hypomagnesemia; E11.42 Type 2 diabetes mellitus with diabetic polyneuropathy; J44.9 Chronic obstructive pulmonary disease, unspecified; K21.9 Gastro-esophageal reflux disease without esophagitis; E78.5 Hyperlipidemia, unspecified; I10 Essential (primary) hypertension; F32.9 Major depressive disorder, single episode, unspecified; F17.200 Nicotine dependence, unspecified, uncomplicated; G47.00 Insomnia, unspecified; Z79.899 Other long term (current) drug therapy; Z79.4 Long term (current) use of insulin
CPT/HCPCS: 36415; 71020; 74177; 80048; 80053; 80076; 82040; 82150; 82310; 82962; 83630; 83690; 83735; 84132; 85025; 85651; 87324; 94640; A9270-GY; J0500; J0610; J1815-GY; J2270; J2543; J3475; J3480; J7030; J7050; Q9967

== ENCOUNTER 2017-09-09 16:06 | Inpatient (IN) | payer MEDICARE, OTHER ==
[2017-09-09] MEDS ORDERED: Sodium Chloride 0.9% 1,000 ML IV SCH (16:30)
[2017-09-09] MEDS ORDERED: Dextrose 5%-0.45% NaCl 1,000 ML IV SCH (18:30)
[2017-09-09] MEDS: Carvedilol 12.5 MG Tab PO SCH (18:53)
[2017-09-09] MEDS: metFORMIN 500 MG Tab PO SCH (18:54)
[2017-09-09] MEDS: Fluticasone/Salmeterol 250-50 MCG Inhalation Powder 14/Diskus INH SCH (20:49)
[2017-09-09] MEDS: traZODone 50 MG Tab PO SCH (20:50)
[2017-09-09] MEDS: Gabapentin 300 MG Cap PO SCH (20:50)
[2017-09-09] MEDS: Morphine 2 MG/ML Syringe IVPUSH PRN (20:54)
[2017-09-09] MEDS: Sodium Chloride 0.9% 1,000 ML IV SCH (22:21)
[2017-09-10] MEDS: Morphine 2 MG/ML Syringe IVPUSH PRN ×4 (03:21→20:40)
[2017-09-10] MEDS: Omeprazole 20 MG Cap.CR PO SCH (07:34)
[2017-09-10] MEDS: Sodium Chloride 0.9% 1,000 ML IV SCH (07:48)
[2017-09-10] MEDS: Fluticasone/Salmeterol 250-50 MCG Inhalation Powder 14/Diskus INH SCH ×2 (07:51→20:35)
[2017-09-10 08:05] LABS: CHLORIDE,CL 106 mmol/L (98-115); SODIUM,NA 144 mmol/L (136-145)
[2017-09-10] MEDS: Carvedilol 12.5 MG Tab PO SCH ×2 (08:05→18:02)
[2017-09-10] MEDS: Aspirin 325 MG Tab.EC PO SCH (08:05)
[2017-09-10] MEDS: Sertraline 50 MG Tab PO SCH (08:05)
[2017-09-10] MEDS: atorvaSTATin 10 MG Tab PO SCH (08:05)
[2017-09-10] MEDS: Gabapentin 300 MG Cap PO SCH ×2 (08:06→20:36)
[2017-09-10] MEDS: Hydrochlorothiazide 12.5 MG Cap PO SCH (08:06)
[2017-09-10] MEDS: amLODIPine 5 MG Tab PO SCH (08:06)
[2017-09-10] MEDS: Losartan 50 MG Tab PO SCH (08:07)
[2017-09-10] MEDS: metFORMIN 500 MG Tab PO SCH (08:08)
[2017-09-10] MEDS: Insulin Aspart 100 Units/ML 3 ML Pen SUBCUT SCH ×2 (12:00→18:00)
--- NOTE | 2017-09-10 12:34 | PN ---
09/10/2017 PATIENT NAME: ROSMERY SHAW CHIEF COMPLAINT: Overall, he does feel somewhat better, still has some generalized abdominal pain, nonspecific. BRIEF HISTORY: 57-year-old male, came to the [facility] from some abdominal pain yesterday and was admitted into the hospital for further evaluation and workup. The patient did take a Pepto-Bismol yesterday. He had been having some black stool last night prior to being admitted with ongoing diarrhea of about five episodes, somewhat watery, non-mucousy, non-bloody. He had been taking Imodium as needed for diarrhea. He does have irritable bowel syndrome. He had been in the hospital previously, did have a colitis. He did have some nausea and however no vomiting. He was not eating. However, he was drinking small amounts of fluid and coffee. He had been taking probiotics and Imodium as needed. Last colonoscopy on August 2016, which was normal. Recent CT of the abdomen on January 2017, did show colitis. PHYSICAL EXAMINATION: GENERAL: The patient is a full code. VITAL SIGNS: He weighs 152 pounds. He is 5 feet 5 inches, blood pressure 143/82, heart rate 94, respiratory rate 16, O2 sats 94% on 2 L. However, the patient does have a history of COPD and he does get hypoxic upon ambulation at 85%. However, he is not on home oxygen and refusing home oxygen. LUNGS: Posterior late expiratory wheezing. Faint right vts-oe-vephq ambrose, however, all else is normal. CARDIOVASCULAR: Regular rate and rhythm. No murmur. ABDOMEN: Normal body habitus per the patient report. No abdominal distention. Bowel tones are hyperactive. Negative Arroyo sign. No fluid wave. Negative psoas. Somewhat tender in generalized mid abdomen area. Normal liver borders. EXTREMITIES: He has no edema in lower extremities. DIAGNOSTIC DATA: Abdominal flat plate x-ray yesterday showed no fluid levels. Gas and stool were present. No official report as of today. LABORATORY DATA: White count normal at 9.4, down from yesterday at 12.8, hematocrit 41.3, hemoglobin 13.4. Negative neutrophilia. Sodium, potassium, BUN, and creatinine normal. Calcium 7.7. Hemoglobin A1c 6.8%. IMPRESSION/PLAN: 1. Gastroenteritis versus colitis aspirated by IBS. Negative neutrophilia. The patient clinically responding. Adv diet tonight, No abx right now. Hold metformin. Hold off on CT right now. It appears that he is clinically improving. Add Bentyl. Chronic medical conditions T2DM; Hold metformin in light of dehydration, GI upset and possible abdominal CT. Hemoglobin A1c 6.8%. Add Insulin SS, low dose. 3. Essential hypertension, controlled. 4. Chronic obstructive pulmonary disease with chronic bronchitis. Respiratory Therapy consultation. The patient does have low oxygen saturations. He is refusing home oxygen. This will be addressed. Cont ICS/LABA. /[id number]/MODL MTDD
[2017-09-10] MEDS: Dicyclomine 10 MG Cap PO SCH ×2 (13:30→20:36)
[2017-09-10] MEDS ORDERED: Sodium Chloride 0.9% 5 ML Syringe FLUSH PRN (15:55)
[2017-09-10] MEDS: traZODone 50 MG Tab PO SCH (20:36)
[2017-09-11 06:54] VITALS: BP 130/73
[2017-09-11] MEDS: Fluticasone/Salmeterol 250-50 MCG Inhalation Powder 14/Diskus INH SCH (07:30)
[2017-09-11] MEDS: Aspirin 325 MG Tab.EC PO SCH (08:11)
[2017-09-11] MEDS: Omeprazole 20 MG Cap.CR PO SCH (08:11)
[2017-09-11] MEDS: Losartan 50 MG Tab PO SCH (08:12)
[2017-09-11] MEDS: Dicyclomine 10 MG Cap PO SCH ×2 (08:12→12:49)
[2017-09-11] MEDS: Hydrochlorothiazide 12.5 MG Cap PO SCH (08:13)
[2017-09-11] MEDS: Sertraline 50 MG Tab PO SCH (08:14)
[2017-09-11] MEDS: Insulin Aspart 100 Units/ML 3 ML Pen SUBCUT SCH ×2 (08:14→12:25)
[2017-09-11] MEDS: atorvaSTATin 10 MG Tab PO SCH (08:14)
[2017-09-11] MEDS: amLODIPine 5 MG Tab PO SCH (08:15)
[2017-09-11] MEDS: Carvedilol 12.5 MG Tab PO SCH (08:15)
[2017-09-11] MEDS: Gabapentin 300 MG Cap PO SCH (08:16)
--- NOTE | 2017-09-14 08:50 | DISCH ---
FINAL DIAGNOSIS: Exacerbation of irritable bowel syndrome, gastroenteritis versus colitis, however, much improved. BRIEF HISTORY: This patient who is 57 years old he had been seen at the [facility] with some abdominal pain, was admitted to the hospital for further evaluation and workup. The patient did take Pepto-Bismol day prior to coming in. He had been having some black stools, likely due to Pepto-Bismol. However, he did admit to ongoing diarrhea about five episodes somewhat watery, non mucousy, non bloody. He has been taking also Imodium at times. He does have a history of irritable bowel syndrome. His last hospitalization was approximately 01/2017. He also had some nausea, however, he did not have any vomiting. He did have a decreased appetite. He also has been taking probiotics. Last colonoscopy was 08/2016, which was normal. Recent CT of the abdomen 01/2017, did show colitis. We felt abdominal CT was not warranted during this hospitalization as he had improved so quickly, especially with added of Bentyl. DIAGNOSTIC DATA: Abdominal flat plate [facility] showed no fluid levels, however, did have some gas and stool present. HOSPITAL COURSE: The patient's hospital course went well. He had no hemodynamic instability other than he did have low oxygen saturations, which the patient states is chronic for him. He is refusing home oxygen. However, he had no wheezing. No respiratory distress. He says this has been worked up in the past. White count in the [facility] was 12.8. He had reduced to 9.4 just with hydration. No antibiotics were given to the patient. Sodium 144, potassium 3.6, BUN 10, creatinine 0.71. I did hold metformin due to the mild dehydration, possible CT along with acute status, and the insulin sliding scale was started. Fasting blood sugar was between 94 and 130. Hemoglobin A1c 6.8%. PHYSICAL EXAM ON DISCHARGE: VITAL SIGNS: Blood pressure 130/73, O2 sats between 85 and 95%, however, non-shortness of breath. This is chronic for the patient. Heart rate 77. LUNGS: Clear to auscultation. CV: Regular rate and rhythm. GI: Nontender other than some mild muscle soreness around the periumbilical area. No distention. Good bowel tones. MEDICATION ADJUSTMENTS: 1. Bentyl 20 mg p.o. t.i.d. (newly added). 2. The patient can start back on all other home medications including metformin. DISPOSITION: The patient will be discharged from the hospital. He feels he is ready to be discharged. He has no abdominal pain, vomiting, or diarrhea. He states the Bentyl seemed to have greatly improved his symptoms. He will follow up with Dr. Lew Gonzalez, 09/16/2017. This appointment has been prescheduled. He is to report any fever, abdominal pain, ongoing diarrhea, mucus, or bloody diarrhea. /[id number]/MODL
== END 2017-09-11 13:35 | disposition home or self-care (01) | DRG 392 ==
LOC: KA.MS 16:06
PROVIDERS: ADMIT Physician Assistant Medical; ATTEND Family Medicine
DX: K58.9 Irritable bowel syndrome, unspecified (principal); K52.9 Noninfective gastroenteritis and colitis, unspecified; F32.9 Major depressive disorder, single episode, unspecified; E11.9 Type 2 diabetes mellitus without complications; I10 Essential (primary) hypertension; E78.5 Hyperlipidemia, unspecified; K21.9 Gastro-esophageal reflux disease without esophagitis; Z79.4 Long term (current) use of insulin
CPT/HCPCS: 36415; 80048; 82270; 82962; 83036; 85025; 94640-76; A9270-GY; J2270; J7030; J7042

== ENCOUNTER 2018-03-09 16:40 | Inpatient (IN) | payer MEDICARE, OTHER ==
[2018-03-09] MEDS ORDERED: Sodium Chloride 0.9% 1,000 ML IV SCH (17:45)
[2018-03-09] MEDS: metroNIDAZOLE/Normal Saline 500 MG in Premix Bag 1 BAG IV SCH (18:24)
[2018-03-09] MEDS: Nicotine 7 MG/24 Hr Patch TRDERM SCH (18:26)
[2018-03-09] MEDS: Ciprofloxacin in D5W 400 MG in Premix Bag 1 BAG IV SCH ×2 (19:55)
[2018-03-09] MEDS ORDERED: NS + KCl 20mEq/L 1,000 ML IV SCH (20:45)
[2018-03-09] MEDS ORDERED: Dicyclomine 10 MG Cap PO PRN (21:21)
[2018-03-09] MEDS ORDERED: Albuterol/Ipratropium 3.0-0.5 MG/3 ML Neb Soln INH PRN (21:21)
[2018-03-09] MEDS ORDERED: Acetaminophen 500 MG Tab PO PRN (21:21)
[2018-03-09] MEDS ORDERED: Cyclobenzaprine 10 MG Tab PO PRN (21:21)
[2018-03-09] MEDS ORDERED: traZODone 50 MG Tab PO PRN (21:28)
[2018-03-09] MEDS: Insulin Detemir 100 Units/ML 3 ML Pen SUBCUT SCH (21:57)
[2018-03-09] MEDS: atorvaSTATin 10 MG Tab PO SCH (21:57)
[2018-03-10] MEDS: metroNIDAZOLE/Normal Saline 500 MG in Premix Bag 1 BAG IV SCH ×3 (02:27→18:33)
[2018-03-10] MEDS: Omeprazole 20 MG Cap.CR PO SCH (06:08)
[2018-03-10] MEDS: Ciprofloxacin in D5W 400 MG in Premix Bag 1 BAG IV SCH ×4 (06:11→17:09)
[2018-03-10] MEDS: Carvedilol 12.5 MG Tab PO SCH ×2 (08:18→17:13)
[2018-03-10] MEDS: Aspirin 325 MG Tab.EC PO SCH (08:18)
[2018-03-10] MEDS: Hydrochlorothiazide 12.5 MG Cap PO SCH (08:18)
[2018-03-10] MEDS: Calcium Carbonate 500 MG Tab.Chew PO SCH ×2 (08:19→17:14)
[2018-03-10] MEDS: Losartan 50 MG Tab PO SCH (08:19)
[2018-03-10] MEDS: Multivitamins with Minerals/Iron/Folic Acid/Lycopene Tab PO SCH (08:19)
[2018-03-10] MEDS: Nicotine 7 MG/24 Hr Patch TRDERM SCH (08:19)
[2018-03-10] MEDS: Sertraline 50 MG Tab PO SCH (08:19)
[2018-03-10] MEDS: amLODIPine 5 MG Tab PO SCH (08:19)
[2018-03-10] MEDS: B.Bifidum/B.Longum/L.Acidophilus/L.Rhamnosus (Probiotic) Cap PO SCH ×2 (08:19→22:13)
[2018-03-10] MEDS: Gabapentin 300 MG Cap PO SCH ×2 (08:19→22:13)
[2018-03-10 08:44] LABS: ANION GAP 16.3 mmol/L (5-15); CHLORIDE,CL 103 mmol/L (98-115); SODIUM,NA 144 mmol/L (136-145)
[2018-03-10] MEDS ORDERED: Cholecalciferol (Vitamin D3) 1,000 Unit Tab PO SCH (09:00)
[2018-03-10] MEDS ORDERED: Erythromycin Base 0.5% Ophth Oint 1 GM Tube EYERT SCH (09:00)
[2018-03-10] MEDS ORDERED: Timolol Maleate 0.5% Ophth Soln 15 ML Bottle EYERT SCH (09:00)
[2018-03-10] MEDS: Atropine 1% Ophth Soln 5 ML BOTTLE EYERT SCH ×3 (10:00→22:12)
[2018-03-10] MEDS: prednisoLONE Acetate 1% Ophth Susp 5 ML Bottle EYERT SCH ×3 (10:00→22:15)
[2018-03-10] MEDS ORDERED: Albuterol/Ipratropium 3.0-0.5 MG/3 ML Neb Soln INH PRN (11:33)
[2018-03-10] MEDS: Sodium Chloride 0.9% with KCl 1,000 ML IV SCH (12:00)
[2018-03-10] MEDS: Erythromycin Base 0.5% Ophth Oint 3.5 GM Tube EYERT SCH ×3 (12:04→22:23)
[2018-03-10] MEDS: Timolol Maleate 0.5% Ophth Soln 5 ML Bottle EYERT SCH ×2 (14:30→22:18)
[2018-03-10] MEDS: Cholecalciferol (Vitamin D3) 1,000 Unit Tab PO SCH (14:30)
--- NOTE | 2018-03-10 15:14 | PN ---
03/10/2018 PATIENT NAME: ROSMERY SHAW CHIEF COMPLAINT: Overall does feel better. Still has ongoing diarrhea, 5 stools last night, however, no blood or mucus noted. Much less abdominal pain. SUBJECTIVE: Rosmery is a 57-year-old gentleman who was admitted by JIMENA Herring, yesterday at [facility] when he had came in for about 4 days of just not feeling well with nausea, ongoing diarrhea 5 to 6 times a day with some abdominal cramping in his left [id number]-[id number]-nwetr quadrant. The patient does have a history of hospitalization about a year to year and a half ago with similar symptoms resembling colitis and diverticulitis. The patient also stated that he had some diaphoresis and chills, and possible fever at home. The patient also had a history of irritable bowel syndrome, taken probiotics and Bentyl. The patient does have some pertinent underlying comorbidities including type 2 diabetes along with hypertension, hyperlipidemia, GERD, COPD. Pertinent clinical findings prior to admission include white count 17.3, glucose 45, potassium 3.0. He was admitted for IV fluids, potassium, electrolyte correction, along with IV Cipro and Flagyl. LABORATORY DATA: This morning white count 10.0, hemoglobin 14.9, hematocrit 44.8. Potassium 3.0, sodium 144, widened anion gap 16.3, and glucose 134. OBJECTIVE: VITAL SIGNS: The patient's BMI 24 with recent weight loss. Temperature 98.6, blood pressure 142/74, heart rate 78, blood pressure 116/72, O2 sats 94%, respiratory rate 16. Pain: Abdominal minimal. GENERAL: The patient s alert and oriented. LUNGS: Clear to auscultation. HEENT: Right eye appears to have a mild conjunctival hemorrhage. Recent cataract surgery. CV: Regular rate and rhythm. No S3. ABDOMEN: Normal bowel tones. Mild tenderness, left mnl-cn-pmykw quadrant. The patient states it is much improved. NEUROLOGIC: Alert and oriented to time, person, and place. He is in no acute distress EXTREMITIES: No pedal edema. PRIMARY HOSPITAL PROBLEMS: 1. Diverticulitis. 2. Hypokalemia. 3. Diarrhea. 4. Hypoglycemia. 5. T2 DM. DISPOSITION AND PLAN: Continue with inpatient status. The patient is improving clinically. We will hold off on abdominal CT at this time. Monitor vital signs. Monitor inflammatory markers. Replace electrolytes for potassium, likely will need up to 120 mEq today. We will place on telemetry while replacing. Due to significant hypoglycemia episode this morning at 25, we will continue holding metformin, hold Levemir. Maintain a clear liquid diet for now, may be able to advance this evening. /[id number]/MODL
[2018-03-10] MEDS ORDERED: EPINEPHrine 1:10,000 1 MG/10 ML Syringe IVPUSH PRN (15:18)
[2018-03-10] MEDS ORDERED: Lidocaine 2% 100 MG/5 ML Syringe IVPUSH PRN (15:18)
[2018-03-10] MEDS ORDERED: Nitroglycerin 0.4 MG Tab.SL SL PRN (15:18)
[2018-03-10] MEDS ORDERED: Atropine 0.1 MG/ML 10 ML Syringe IVPUSH PRN (15:18)
[2018-03-10] MEDS: Potassium Bicarbonate/Potassium Chloride 25 MEQ Tab.Eff PO SCH (17:08)
[2018-03-10] MEDS: atorvaSTATin 10 MG Tab PO SCH (22:13)
[2018-03-11] MEDS: metroNIDAZOLE/Normal Saline 500 MG in Premix Bag 1 BAG IV SCH ×3 (01:42→18:20)
[2018-03-11] MEDS: Sodium Chloride 0.9% with KCl 1,000 ML IV SCH (04:45)
[2018-03-11] MEDS: Ciprofloxacin in D5W 400 MG in Premix Bag 1 BAG IV SCH ×4 (06:16→17:14)
[2018-03-11] MEDS: Omeprazole 20 MG Cap.CR PO SCH (06:18)
[2018-03-11] MEDS: Aspirin 325 MG Tab.EC PO SCH (08:15)
[2018-03-11] MEDS: B.Bifidum/B.Longum/L.Acidophilus/L.Rhamnosus (Probiotic) Cap PO SCH ×2 (08:15→22:07)
[2018-03-11] MEDS: Multivitamins with Minerals/Iron/Folic Acid/Lycopene Tab PO SCH (08:15)
[2018-03-11] MEDS: Hydrochlorothiazide 12.5 MG Cap PO SCH (08:15)
[2018-03-11] MEDS: Carvedilol 12.5 MG Tab PO SCH ×2 (08:15→17:10)
[2018-03-11] MEDS: Calcium Carbonate 500 MG Tab.Chew PO SCH ×2 (08:16→18:22)
[2018-03-11] MEDS: Losartan 50 MG Tab PO SCH (08:16)
[2018-03-11] MEDS: Gabapentin 300 MG Cap PO SCH ×2 (08:16→22:06)
[2018-03-11 08:17] LABS: ANION GAP 11.4 mmol/L (5-15); CHLORIDE,CL 111 mmol/L (98-115); SODIUM,NA 148 mmol/L (136-145)
[2018-03-11] MEDS: amLODIPine 5 MG Tab PO SCH (08:17)
[2018-03-11] MEDS: Cholecalciferol (Vitamin D3) 1,000 Unit Tab PO SCH (08:17)
[2018-03-11] MEDS: Sertraline 50 MG Tab PO SCH (08:17)
[2018-03-11] MEDS: Potassium Bicarbonate/Potassium Chloride 25 MEQ Tab.Eff PO SCH (08:20)
[2018-03-11] MEDS: Nicotine 7 MG/24 Hr Patch TRDERM SCH (08:20)
[2018-03-11] MEDS: Erythromycin Base 0.5% Ophth Oint 3.5 GM Tube EYERT SCH ×3 (08:22→22:15)
[2018-03-11] MEDS: Atropine 1% Ophth Soln 5 ML BOTTLE EYERT SCH ×3 (08:22→22:05)
[2018-03-11] MEDS: Timolol Maleate 0.5% Ophth Soln 5 ML Bottle EYERT SCH ×3 (08:23→22:11)
[2018-03-11] MEDS: prednisoLONE Acetate 1% Ophth Susp 5 ML Bottle EYERT SCH ×3 (08:23→22:08)
--- NOTE | 2018-03-11 12:07 | PN ---
03/11/2018 PATIENT NAME: ROSMERY SHWA CHIEF COMPLAINT: Overall, he is feeling better. Still has ongoing stools about four to five a day, however, less abdominal pain, less abdominal distention. Vital signs are stable. The patient is hungry, has been on clear liquid diet. HISTORY: Rosmery is 57 years old, admitted from the [facility]. He had about four days of just not feeling well with nausea, ongoing diarrhea up to six times a day with some abdominal cramps, mainly to his left mid to lower quadrant. He does have history of hospitalizations with irritable bowel syndrome and colitis versus diverticulitis in the past. These are similar symptoms that he has been having. He also had some chills and diaphoresis, possible fever at home. PERTINENT CLINICAL FINDINGS PRIOR TO ADMISSION: He did have an elevated white count of 17.3, hemoglobin 14.9. Potassium 3.0, we have been correcting that; sodium 144 with a widened anion gap of 16.3. White count now 10.0, hemoglobin 14.9, hematocrit 44.8. Sodium 148, potassium now improved to 3.4, anion gap has improved to 11.4, BUN 4, creatinine 0.78, blood sugars have improved. He has had some low hypoglycemic episodes early on admission, however, these are improved, however, not ideal. I am holding his metformin along with his long-acting insulin. PHYSICAL EXAMINATION: GENERAL: This morning; blood pressure 142/83, temperature 98.3, T-max in the hospital 98.7, O2 sats low 90s, respiratory rate 18. Intake and output; in 6000, out 4580, a little increase in weight gain on microbiology report. CV: S1, S2 normal. No S3. LUNGS: Clear to auscultation. HEENT: Right eye profusely conjunctival hemorrhage, not involving the iris, mild photophobia. The patient did have a recent cataract surgery. No decrease in visual acuity. ABDOMEN: Good bowel tones. No longer tenderness, much improved. EXTREMITIES: No edema noted. PRIMARY HOSPITAL PROBLEMS: Diverticulitis versus colitis; hypokalemia, now improved; diarrhea; hypoglycemia, improving; type 2 diabetes mellitus. DISPOSITION AND PLAN: We will continue an inpatient status. He is improving. No fever. White count is normal. Vital signs are stable. Doubtful if we are dealing with any megacolon or toxic colitis. If that said, we will continue to hold off on any abdominal CT. We will continue to monitor inflammatory markers. Due to malabsorption, we will continue to correct his potassium through the IV, however, slow down his rate and advance to a full liquid diet today. Continue holding insulin and metformin. We will consult with Dr. Bunn, horse racing analyst, regarding his right eye since the patient recently had cataract surgery and now he has a profuse conjunctival hemorrhage, could be due to valsalving due to recent abdominal pain and multiple episodes of diarrhea; however, we will consult with horse racing analyst. /[id number]/MODL
[2018-03-11] MEDS: atorvaSTATin 10 MG Tab PO SCH (22:06)
[2018-03-12] MEDS: Sodium Chloride 0.9% with KCl 1,000 ML IV SCH (00:13)
[2018-03-12] MEDS: metroNIDAZOLE/Normal Saline 500 MG in Premix Bag 1 BAG IV SCH ×2 (02:23→10:33)
[2018-03-12] MEDS: Ciprofloxacin in D5W 400 MG in Premix Bag 1 BAG IV SCH ×2 (05:18)
[2018-03-12] MEDS: Omeprazole 20 MG Cap.CR PO SCH (06:17)
[2018-03-12 08:20] LABS: ANION GAP 14.8 mmol/L (5-15); CHLORIDE,CL 108 mmol/L (98-115); SODIUM,NA 150 mmol/L (136-145)
[2018-03-12] MEDS: Atropine 1% Ophth Soln 5 ML BOTTLE EYERT SCH ×3 (08:40→20:34)
[2018-03-12] MEDS: Losartan 50 MG Tab PO SCH (08:42)
[2018-03-12] MEDS: Carvedilol 12.5 MG Tab PO SCH ×2 (08:42→18:24)
[2018-03-12] MEDS: Multivitamins with Minerals/Iron/Folic Acid/Lycopene Tab PO SCH (08:42)
[2018-03-12] MEDS: Aspirin 325 MG Tab.EC PO SCH (08:43)
[2018-03-12] MEDS: Nicotine 7 MG/24 Hr Patch TRDERM SCH (08:43)
[2018-03-12] MEDS: amLODIPine 5 MG Tab PO SCH (08:44)
[2018-03-12] MEDS: Hydrochlorothiazide 12.5 MG Cap PO SCH (08:44)
[2018-03-12] MEDS: Gabapentin 300 MG Cap PO SCH ×2 (08:44→20:38)
[2018-03-12] MEDS: B.Bifidum/B.Longum/L.Acidophilus/L.Rhamnosus (Probiotic) Cap PO SCH ×2 (08:44→20:38)
[2018-03-12] MEDS: Calcium Carbonate 500 MG Tab.Chew PO SCH ×2 (08:45→18:24)
[2018-03-12] MEDS: Potassium Bicarbonate/Potassium Chloride 25 MEQ Tab.Eff PO SCH (08:45)
[2018-03-12] MEDS: Timolol Maleate 0.5% Ophth Soln 5 ML Bottle EYERT SCH ×3 (08:51→20:34)
[2018-03-12] MEDS: Cholecalciferol (Vitamin D3) 1,000 Unit Tab PO SCH (08:54)
[2018-03-12] MEDS: Sertraline 50 MG Tab PO SCH (08:55)
[2018-03-12] MEDS: prednisoLONE Acetate 1% Ophth Susp 5 ML Bottle EYERT SCH ×3 (08:56→20:34)
[2018-03-12] MEDS: Erythromycin Base 0.5% Ophth Oint 3.5 GM Tube EYERT SCH ×3 (08:59→20:35)
[2018-03-12] MEDS ORDERED: Potassium Bicarbonate/Potassium Chloride 25 MEQ Tab.Eff PO ONE ×3 (12:00→21:00)
[2018-03-12] MEDS: Dicyclomine 10 MG Cap PO SCH ×2 (14:31→20:36)
--- NOTE | 2018-03-12 16:04 | PN ---
03/12/2018 PATIENT NAME: ROSMERY SHAW CHIEF COMPLAINT: Continues to feel better; increase in appetite; less abdominal pain, no longer constant, just mild intermittent, left mid to lower. No fever, night sweats, or chills. Vital signs stable. No fever. Still has ongoing fluctuating potassium levels. Ambulating quite well on the floor. No diarrhea in the past 24 hours. HISTORY: A 57-year-old gentleman who was admitted from the [facility] just not feeling well, nausea, ongoing diarrhea up to six times a day with some abdominal cramps, mainly to his mid left lower quadrant. He does have a history of hospitalizations with IBS with colitis versus diverticulitis in the past. He states his symptoms are similar. He also had some chills and diaphoresis with possible fever at home. PERTINENT CLINICAL FINDINGS PRIOR TO ADMISSION: He did have an elevated white count of 17.3, hemoglobin 14.9 with a potassium of 3.0. Labs: White count now 10.0, hemoglobin 14.9, hematocrit 44.8, however, elevated sodium level at 150, potassium 3.1, chloride 108, BUN 3, creatinine 0.7, calcium 7.9, glucose has improved to 123. PHYSICAL EXAMINATION: VITAL SIGNS: The patient's BMI is 24, temperature 99.3, blood pressure 146/83, heart rate 77, O2 sats in the low 90s, respiratory rate 18, no oxygen. CV: Normal. S1, S2 audible. No S3 or gallop sounds. LUNGS: Clear to auscultation. HEENT: Right eye, some improvement. Does have a conjunctival hemorrhage, however, not involving the iris. Mild photophobia. Good EOM. ABDOMEN: Good bowel tones, just some mild tenderness on deep palpation in left lower quadrant, however, much improved. No longer having bloody or any stools or diarrhea. PRIMARY HOSPITAL PROBLEMS: 1. Diverticulitis versus colitis. 2. Hypokalemia. 3. Hypernatremia. 4. T2DM. DISPOSITION AND PLAN: Continue with inpatient stay. Continue to advance diet to a soft low residue. Change Flagyl to p.o. t.i.d. Start back up on his Bentyl. Correct his potassium. Change his oral to Cipro. Change IV fluids to half-normal saline with potassium. Continue to ambulate around on the floor today. The patient is responding clinically. I did consult Dr. Bunn regarding his conjunctival hemorrhage. The patient does have a followup appointment to see Dr. Bunn, the retinal specialist, this Thursday. I do believe the patient likely will be discharged within 24 to 48 hours. /[id number]/MODL
[2018-03-12] MEDS: metroNIDAZOLE 500 MG Tab PO SCH ×2 (16:37→22:25)
[2018-03-12] MEDS: Sodium Chloride 0.45% with KCl 1,000 ML IV SCH (18:25)
[2018-03-12] MEDS: Ciprofloxacin 500 MG Tab PO SCH (20:36)
[2018-03-12] MEDS: atorvaSTATin 10 MG Tab PO SCH (20:37)
[2018-03-13] MEDS: metroNIDAZOLE 500 MG Tab PO SCH ×3 (06:00→22:09)
[2018-03-13] MEDS: Omeprazole 20 MG Cap.CR PO SCH (06:00)
[2018-03-13] MEDS: Ciprofloxacin 500 MG Tab PO SCH ×2 (06:00→18:40)
[2018-03-13] MEDS: Dicyclomine 10 MG Cap PO SCH ×3 (08:35→21:53)
[2018-03-13] MEDS: Carvedilol 12.5 MG Tab PO SCH ×2 (08:35→18:03)
[2018-03-13] MEDS: Aspirin 325 MG Tab.EC PO SCH (08:36)
[2018-03-13] MEDS: Multivitamins with Minerals/Iron/Folic Acid/Lycopene Tab PO SCH (08:36)
[2018-03-13] MEDS: Calcium Carbonate 500 MG Tab.Chew PO SCH ×2 (08:36→18:03)
[2018-03-13] MEDS: Losartan 50 MG Tab PO SCH (08:36)
[2018-03-13] MEDS: B.Bifidum/B.Longum/L.Acidophilus/L.Rhamnosus (Probiotic) Cap PO SCH ×2 (08:39→21:53)
[2018-03-13] MEDS: Hydrochlorothiazide 12.5 MG Cap PO SCH (08:39)
[2018-03-13] MEDS: Nicotine 7 MG/24 Hr Patch TRDERM SCH (08:40)
[2018-03-13] MEDS: Gabapentin 300 MG Cap PO SCH ×2 (08:40→21:53)
[2018-03-13] MEDS: amLODIPine 5 MG Tab PO SCH (08:40)
[2018-03-13] MEDS: Potassium Bicarbonate/Potassium Chloride 25 MEQ Tab.Eff PO SCH (08:41)
[2018-03-13] MEDS: Cholecalciferol (Vitamin D3) 1,000 Unit Tab PO SCH (08:41)
[2018-03-13] MEDS: Atropine 1% Ophth Soln 5 ML BOTTLE EYERT SCH ×3 (08:44→21:50)
[2018-03-13] MEDS: Timolol Maleate 0.5% Ophth Soln 5 ML Bottle EYERT SCH ×3 (08:50→21:51)
[2018-03-13] MEDS: Sertraline 50 MG Tab PO SCH (08:50)
[2018-03-13] MEDS: prednisoLONE Acetate 1% Ophth Susp 5 ML Bottle EYERT SCH ×3 (08:52→21:51)
[2018-03-13] MEDS: Erythromycin Base 0.5% Ophth Oint 3.5 GM Tube EYERT SCH ×3 (08:56→21:51)
[2018-03-13 09:51] LABS: ANION GAP 7.7 mmol/L (5-15); CHLORIDE,CL 104 mmol/L (98-115); SODIUM,NA 137 mmol/L (136-145)
[2018-03-13] MEDS ORDERED: Potassium Bicarbonate/Potassium Chloride 25 MEQ Tab.Eff PO ONE ×2 (11:30→21:00)
[2018-03-13] MEDS ORDERED: Ketorolac 30 MG/ML SDV IVPUSH ONE (11:32)
[2018-03-13] MEDS ORDERED: Losartan 50 MG Tab PO ONE (13:02)
--- NOTE | 2018-03-13 13:50 | PN ---
03/13/2018 PATIENT NAME: ROSMERY SHAW CHIEF COMPLAINT: Overall does feel better, less abdominal pain, still has some mild ongoing diarrhea. Nurses stated just a slight streaks of blood, however, very minimal, mostly brown. His potassium has been corrected. Vital signs are stable. No fever. No night sweats or chills. HISTORY: This is a 57-year-old gentleman who was admitted from the [facility] just not feeling well. He has some overall nausea, multiple diarrhea up to six times in a day with significant abdominal cramps, mainly to his mid left lower quadrant. The patient does have history of periodic hospitalizations with irritable bowel syndrome and colitis versus diverticulitis in the past. He was seen at the [facility] with an elevated white count of 17.3 with hypokalemia. PHYSICAL EXAMINATION: VITAL SIGNS: Blood pressure slightly elevated at 153/90, heart rate 80, temperature 97.4, O2 sats 97% on room air, respiratory rate good at 20. CV: Normal S1 and S2. No S3 or gallops. LUNGS: Clear to auscultation. HEENT: Still has ongoing conjunctival hemorrhage, however, approximately 50% improvement, mild photophobia, good EOM. No pain. ABDOMEN: Decreased bowel tones. No tenderness on palpation, much improved. No abdominal tautness or edema or distention of primary. LABORATORY DATA: Labs this morning; sodium 137, potassium 3.4, creatinine 0.72, calcium 7.4, glucose much improved 104. PRIMARY HOSPITAL PROBLEMS: 1. Diverticulitis versus colitis, this is improving. We will continue on oral Cipro, oral Flagyl, this was changed yesterday. 2. Hypokalemia, improving. Continue with replacement therapy today. I suspect he will need approximately 100-120 mEq likely due to malabsorption. He is also on ARB. 3. Hyponatremia, this has resolved. 4. Headache. 5. Type 2 diabetes mellitus, much improved. Continue holding metformin and exogenous insulin. 6. Hypertension, not optimal. Increase losartan. DISPOSITION AND PLAN: I felt the patient could likely go home today; however, he was slightly reluctant in this. With that said, we will continue with potassium replacement. Continue with advanced diet to soft. Continue with Flagyl and oral p.o., ambulate in the halls today. He is responding clinically. Likely, the patient will be discharged in the a.m. He will follow up with Dr. Bunn, retinal specialists and close monitoring at the [facility] regarding his IBS. /[id number]/MODL MTDD
[2018-03-13] MEDS: Acetaminophen 500 MG Tab PO SCH ×2 (14:21→22:00)
[2018-03-13] MEDS ORDERED: Ketorolac 30 MG/ML SDV IVPUSH PRN (20:00)
[2018-03-13] MEDS: atorvaSTATin 10 MG Tab PO SCH (21:53)
[2018-03-13] MEDS: Sodium Chloride 0.45% with KCl 1,000 ML IV SCH (21:55)
[2018-03-13] MEDS: Insulin Detemir 100 Units/ML 3 ML Pen SUBCUT SCH (21:59)
[2018-03-14] MEDS: metroNIDAZOLE 500 MG Tab PO SCH ×2 (06:13→13:10)
[2018-03-14] MEDS: Ciprofloxacin 500 MG Tab PO SCH (06:14)
[2018-03-14] MEDS: Omeprazole 20 MG Cap.CR PO SCH (06:15)
[2018-03-14 08:27] LABS: ANION GAP 16.4 mmol/L (5-15); CHLORIDE,CL 106 mmol/L (98-115); SODIUM,NA 149 mmol/L (136-145)
[2018-03-14] MEDS: amLODIPine 5 MG Tab PO SCH (08:27)
[2018-03-14] MEDS: B.Bifidum/B.Longum/L.Acidophilus/L.Rhamnosus (Probiotic) Cap PO SCH (08:30)
[2018-03-14] MEDS: Dicyclomine 10 MG Cap PO SCH (08:31)
[2018-03-14] MEDS: Calcium Carbonate 500 MG Tab.Chew PO SCH (08:31)
[2018-03-14] MEDS: Multivitamins with Minerals/Iron/Folic Acid/Lycopene Tab PO SCH (08:32)
[2018-03-14] MEDS: Carvedilol 12.5 MG Tab PO SCH (08:32)
[2018-03-14] MEDS: Gabapentin 300 MG Cap PO SCH (08:33)
[2018-03-14] MEDS: Hydrochlorothiazide 12.5 MG Cap PO SCH (08:33)
[2018-03-14] MEDS: Aspirin 325 MG Tab.EC PO SCH (08:33)
[2018-03-14 08:34] VITALS: BP 151/80
[2018-03-14] MEDS: Cholecalciferol (Vitamin D3) 1,000 Unit Tab PO SCH (08:34)
[2018-03-14] MEDS: Sertraline 50 MG Tab PO SCH (08:34)
[2018-03-14] MEDS: Potassium Bicarbonate/Potassium Chloride 25 MEQ Tab.Eff PO SCH (08:35)
[2018-03-14] MEDS: Nicotine 7 MG/24 Hr Patch TRDERM SCH (08:40)
[2018-03-14] MEDS: Acetaminophen 500 MG Tab PO SCH (08:41)
[2018-03-14] MEDS: Atropine 1% Ophth Soln 5 ML BOTTLE EYERT SCH (08:43)
[2018-03-14] MEDS: prednisoLONE Acetate 1% Ophth Susp 5 ML Bottle EYERT SCH (08:44)
[2018-03-14] MEDS: Timolol Maleate 0.5% Ophth Soln 5 ML Bottle EYERT SCH (08:45)
[2018-03-14] MEDS: Erythromycin Base 0.5% Ophth Oint 3.5 GM Tube EYERT SCH (08:46)
[2018-03-14] MEDS ORDERED: Losartan 50 MG Tab PO SCH (09:00)
--- NOTE | 2018-03-15 10:39 | DISCH ---
The patient was admitted into inpatient on 03/09, discharged from inpatient on 03/14. FINAL DIAGNOSES: 1. Diverticulitis versus colitis. 2. Hypokalemia. 3. Hypernatremia. 4. T2 DM. HISTORY: This 57-year-old gentleman was admitted from the [facility] with overall not feeling well. He come in with some overall nausea, multiple diarrhea up to six times a day with significant abdominal cramps mainly to his mid left lower quadrant. The patient does have a history of periodic hospitalizations with IBS, colitis versus diverticulitis in the past. He had been seen in the [facility] [place] [id number] [place] along with hypokalemia. At the prior hospitalization, he was complaining of diaphoresis and chills, unknown fever, but he thought he had a low-grade fever for his IBS. He had been taking probiotics along with Bentyl. PERTINENT CLINICAL FINDINGS PRIOR TO ADMISSION: White count 17.3, glucose 45, potassium 3.0. He was admitted for IV fluids, potassium, electrolyte correction, further workup along with IV Cipro and Flagyl. HOSPITAL COURSE: Hospital course went well other than he did have ongoing diarrhea with streaks of blood and an abdominal pain which resolved slowly. He never became hemodynamically unstable. I held off on any imaging, followed him more clinically. He did improve. He did require significant potassium replacement up to 100-120 mEq per day, both IV and p.o. Telemetry was used during aggressive potassium replacement. His metformin and his insulin were held due to hypoglycemia. Did have periodic frontal headache, limited Toradol was given, this did resolve. He did have hypernatremia at some point, free water was given, this did normalize. IV Cipro and IV Flagyl were initially given. This was changed to oral 48 hours prior to discharge. The patient did have a right eye subconjunctival hemorrhage. He is status post cataract surgery. Dr. Bunn, retinal specialist in [place] was notified. He will have an appointment, March 15 for followup. He had no visual disturbance. It did not involve the iris. He had mild photophobia. However, he was getting eye drops for dilatation purposes. He had no pain. Diet was advanced and he did tolerate advanced diet. PHYSICAL EXAMINATION: VITAL SIGNS: On discharge, blood pressure 150/80, heart rate 82, temperature 98.2, blood pressure 119/71. GENERAL: He was alert and oriented. LUNGS: Clear to auscultation. CV: S1 and S2 normal. No S3 gallop. ABDOMEN: Normal bowel tones. Very slight tenderness, left lower mid quadrant, however on deep palpation, no abdominal distention, no guarding. LABS: White count 7.2, neutrophilia 53%. Sodium 149, potassium 3.5, anion gap slightly wide at 16.4, BUN 7, creatinine 0.74. He did have a corrected calcium at 7.4. MEDICATION CHANGES AND ADJUSTMENTS ON DISCHARGE: Cipro 500 mg p.o. b.i.d. x4 days, metronidazole 500 mg p.o. q.8 hours x4 days, Klor-Con potassium 20 mEq p.o. b.i.d. (behind everyone of these newly added). Hold metformin until followup. Start back up on Bentyl. He can continue all other home medications. CONSULTATIONS: Dr. Bunn, retinal specialist, [place], March 15, 2018. DISCHARGE DISPOSITION AND FOLLOWUP INSTRUCTIONS: The patient will be discharged from inpatient self-care. He has met goals. He is ready for discharge. Follow up with Anna Hastings this week, [facility] if report any fevers, worsening abdominal pain, worsening diarrhea. RECOMMENDATIONS AND FOLLOWUP: BMP to assess potassium. Then make adjustments accordingly. The patient was given potassium rich foods upon discharge. /[id number]/MODL
== END 2018-03-14 14:20 | disposition home or self-care (01) | DRG 392 ==
LOC: KA.MS 16:40
PROVIDERS: ADMIT Physician Assistant Medical; ATTEND Family Medicine
DX: K57.92 Diverticulitis of intestine, part unspecified, without perforation or abscess without bleeding (principal); E87.0 Hyperosmolality and hypernatremia; E87.1 Hypo-osmolality and hyponatremia; K52.9 Noninfective gastroenteritis and colitis, unspecified; E87.6 Hypokalemia; E11.649 Type 2 diabetes mellitus with hypoglycemia without coma; H11.31 Conjunctival hemorrhage, right eye; R51 Headache; K58.0 Irritable bowel syndrome with diarrhea; I10 Essential (primary) hypertension; E78.5 Hyperlipidemia, unspecified; M81.0 Age-related osteoporosis without current pathological fracture; K21.9 Gastro-esophageal reflux disease without esophagitis; F32.9 Major depressive disorder, single episode, unspecified; J44.9 Chronic obstructive pulmonary disease, unspecified; F17.210 Nicotine dependence, cigarettes, uncomplicated; Z88.1 Allergy status to other antibiotic agents; Z79.4 Long term (current) use of insulin; Z90.49 Acquired absence of other specified parts of digestive tract; Z79.899 Other long term (current) drug therapy
CPT/HCPCS: 36415; 80048; 82962; 85025; 85651; A9270-GY; J0744; J1815-GY; J1885; J3480; J3490; J7030

== ENCOUNTER 2018-03-23 17:15 | Emergency (ER) | payer MEDICARE, OTHER ==
[2018-03-23 17:32] VITALS: BP 137/75
[2018-03-23 18:07] LABS: ANION GAP 19.2 mmol/L (5-15); CHLORIDE,CL 100 mmol/L (98-115); SODIUM,NA 146 mmol/L (136-145)
[2018-03-23] MEDS: Sodium Chloride 0.9% 1,000 ML IV ONE (18:10)
[2018-03-23] MEDS ORDERED: Sodium Chloride 0.9% 5 ML Syringe FLUSH PRN (18:12)
[2018-03-23] MEDS: Ondansetron 4 MG/2 ML SDV IVPUSH ONE (18:17)
--- NOTE | 2018-03-23 18:25 | EDM.PDOC ---
ED HPI GENERAL MEDICAL PROBLEM - General Chief Complaint: General Stated Complaint: WEAK Time Seen by Provider: 03/23/18 18:12 Source of Information: Reports: Patient History Limitations: Reports: No Limitations - History of Present Illness INITIAL COMMENTS - FREE TEXT/NARRATIVE: Patient is a 58-year-old gentleman who presents to the emergency department this evening with a complaint of nausea and dizziness. Patient states last night about 7 p.m. He day from the couch after sitting for several hours and felt dizzy and became nauseous. Symptoms seemed to subside and he was able to go to sleep last night till 8 o'clock this morning. Patient went to [facility] for lab work today, with anticipation of getting CAT scan tomorrow to reevaluate diverticulitis status and because of his nausea and dizziness symptoms, was told to go to the ER. Patient denies chest pain, shortness of breath, vision changes, abdominal pain, bowel changes, or bloody stool Onset: Gradual Onset Date: 03/22/18 Onset Time: 19:00 Duration: Hour(s): Quality: Reports: Other (Weakness and dizziness upon rising) Improves with: Reports: None Worsens with: Reports: None Context: Reports: Activity. Denies: Exercise, Lifting, Sick Contact, Trauma Associated Symptoms: Reports: Nausea/Vomiting - Related Data Allergies Allergy/AdvReac Type Severity Reaction Status Date / Time gentamicin sulfate Allergy Swollen Verified 03/23/18 17:29 [From Garamycin] Eyes Home Meds: Home Meds Ipratropium/Albuterol Sulfate [Duoneb 0.5 MG-3 MG/3 ML] 3 ml IH ASDIRECTED PRN 09/20/13 [History] Omeprazole 40 mg PO 0700 09/20/13 [History] Probiotic Gold Extra Strength 1 cap PO BID 09/20/13 [History] Calcium Carbonate [Calcium] 600 mg PO BIDMEALS 12/05/14 [History] Gabapentin [Neurontin] 300 mg PO BID 12/05/14 [History] metFORMIN [Glucophage] 750 mg PO BIDMEALS 12/05/14 [History] Carvedilol [Coreg] 12.5 mg PO BIDMEALS 09/16/16 [History] Cyclobenzaprine [Flexeril] 10 - 20 mg PO BEDTIME PRN 09/16/16 [History] Losartan/Hydrochlorothiazide [Losartan-HCTZ 50-12.5 MG] 1 each PO DAILY [History] traZODone 75 mg PO BEDTIME 09/16/16 [History] Acetaminophen [Tylenol Extra Strength] 1,000 tab PO BID 01/21/17 [History] Cholecalciferol (Vitamin D3) [Vitamin D3] 10,000 unit PO DAILY 01/21/17 [History ] Multivitamin with Minerals [Multiple Vitamin] 1 tab PO DAILY 01/21/17 [History] amLODIPine [Norvasc] 10 mg PO DAILY 01/21/17 [History] Aspirin [Ecotrin] 325 mg PO DAILY 09/09/17 [History] atorvaSTATin [Lipitor] 10 mg PO BEDTIME 09/09/17 [History] Dicyclomine [Bentyl] 20 mg PO TID #60 cap 09/11/17 [Rx] Atropine 1% [Atropine 1% Ophth Soln] 1 drop EYERT TID 03/09/18 [History] Denosumab [Prolia] 1 ml SUBCUT ASDIRECTED 03/09/18 [History] Erythromycin Base [Erythromycin 0.5% Ophth Oint] 1 applic EYERT TID 03/09/18 [ History] Prednisolone Acetate/Pf [Prednisolone Acet 1% Eye Drop] 1 drop EYERT TID [History] Timolol Maleate [Timoptic 0.5% Ophth Soln] 1 drop EYERT TID 03/09/18 [History] Sertraline [Zoloft] 50 mg PO DAILY 03/10/18 [History] Potassium Chloride [Klor-Con M20] 20 meq PO BID 03/23/18 [History] Past Medical History HEENT History: Reports: Impaired Vision Cardiovascular History: Reports: High Cholesterol, Hypertension Respiratory History: Reports: COPD Gastrointestinal History: Reports: Chronic Diarrhea, GERD, Irritable Bowel Syndrome Musculoskeletal History: Reports: Osteoporosis Neurological History: Reports: Concussion Psychiatric History: Reports: Depression Endocrine/Metabolic History: Reports: Diabetes, Type II - Infectious Disease History Infectious Disease History: Reports: Chicken Pox, Measles, Mumps - Past Surgical History HEENT Surgical History: Reports: Cataract Surgery Cardiovascular Surgical History: Reports: None Respiratory Surgical History: Reports: None GI Surgical History: Reports: Cholecystectomy Endocrine Surgical History: Reports: None Musculoskeletal Surgical History: Reports: Arthroscopic Procedure Other Musculoskeletal Surgeries/Procedures:: torn ligaments, wrist Social & Family History - Family History Family Medical History: Noncontributory Endocrine/Metabolic: Reports: Diabetes, type II - Tobacco Use Smoking Status *Q: Current Every Day Smoker Years of Tobacco use: 42 Packs/Tins Daily: 0.7 Second Hand Smoke Exposure: No - Caffeine Use Caffeine Use: Reports: Coffee, Energy Drinks, Soda, Tea - Recreational Drug Use Recreational Drug Use: No - Living Situation & Occupation Living situation: Reports: Single, with Family Occupation: Other ED ROS GENERAL - Review of Systems Review Of Systems: ROS reveals no pertinent complaints other than HPI. Constitutional: Reports: No Symptoms HEENT: Reports: No Symptoms Respiratory: Reports: No Symptoms Cardiovascular: Reports: No Symptoms Endocrine: Reports: No Symptoms GI/Abdominal: Reports: No Symptoms : Reports: No Symptoms Musculoskeletal: Reports: No Symptoms Skin: Reports: No Symptoms Neurological: Reports: Dizziness Psychiatric: Reports: No Symptoms Hematologic/Lymphatic: Reports: No Symptoms Immunologic: Reports: No Symptoms ED EXAM, GENERAL - Physical Exam Exam: See Below Exam Limited By: No Limitations General Appearance: Alert, WD/WN, No Apparent Distress Eye Exam: Bilateral Eye: Normal Inspection Ears: Normal External Exam, Normal Canal, Normal TMs Nose: Normal Inspection, Normal Mucosa, No Blood Throat/Mouth: Normal Inspection, Normal Oropharynx, No Airway Compromise, Perioral Cyanosis Head: Atraumatic Neck: Normal Inspection, Supple, Non-Tender Respiratory/Chest: No Respiratory Distress, Lungs Clear, Normal Breath Sounds, No Accessory Muscle Use, Chest Non-Tender Cardiovascular: Normal Peripheral Pulses, Regular Rate, Rhythm, No Murmur GI/Abdominal: Normal Bowel Sounds, Soft, Non-Tender, No Organomegaly, No Distention, No Abnormal Bruit, No Mass Back Exam: Normal Inspection. No: CVA Tenderness (L), CVA Tenderness (R) Extremities: Normal Inspection, No Pedal Edema Neurological: Alert, Oriented, CN II-XII Intact, Normal Cognition, No Motor/ Sensory Deficits Psychiatric: Normal Affect, Normal Mood Skin Exam: Warm, Dry, Intact, Normal Color, No Rash Lymphatic: No Adenopathy Course - Vital Signs Last Recorded V/S: Last Vital Signs Temp 99.4 F 03/23/18 17:27 Pulse 117 H 03/23/18 17:27 Resp 22 H 03/23/18 17:27 BP 137/75 03/23/18 17:27 Pulse Ox 94 L 03/23/18 17:27 Orthostatic Blood Pressure [ 114/74 Standing] Orthostatic Blood Pressure [ 114/75 Sitting] Orthostatic Blood Pressure [ 114/74 Supine] - Orders/Labs/Meds Orders: Active Orders 24 hr Category Date Time Status Peripheral IV Care [RC] . DIRECTED Care 03/23/18 18:12 Ordered Ondansetron [Zofran ODT] Med 03/23/18 19:18 Once 4 mg PO ONETIME ONE Sodium Chloride 0.9% [Syrex Flush] Med 03/23/18 18:12 Ordered 5 ml FLUSH Q8HR PRN Peripheral IV Insertion Adult [OM.PC] Routine Oth 03/23/18 18:12 Ordered Medication Orders Sodium Chloride (Syrex Flush) 5 ml FLUSH Q8HR PRN PRN Reason: Keep Vein Open Labs: Laboratory Tests 03/23/18 03/23/18 Range/Units 17:45 17:45 WBC 12.89 H (5.00-10.00) 10^3/uL RBC 5.07 (4.50-6.00) 10^6/uL Hgb 14.7 D (13.0-17.0) g/dL Hct 44.4 (40.0-52.0) % MCV 87.6 (82.0-92.0) fL MCH 29.0 (27.0-31.0) pg MCHC 33.1 (32.0-36.0) g/dL RDW 14.7 H (11.5-14.5) % Plt Count 399 D (150-400) 10^3/uL MPV 9.6 (7.4-10.4) fL Immature Gran % (Auto) 0.2 (0.0-5.0) % Neut % (Auto) 79.5 H (50.0-70.0) % Lymph % (Auto) 15.3 L (20.0-40.0) % [place] % (Auto) 4.6 (2.0-8.0) % Eos % (Auto) 0.2 L (1.0-3.0) % Baso % (Auto) 0.2 (0.0-1.0) % Immature Gran # (Auto) 0.02 (0.00-0.50) 10^3/uL Neut # (Auto) 10.26 H (2.50-7.00) 10^3/uL Lymph # (Auto) 1.97 (1.00-4.00) 10^3/uL [place] # (Auto) 0.59 (0.10-0.80) 10^3/uL Eos # (Auto) 0.02 L (0.10-0.30) 10^3/uL Baso # (Auto) 0.03 (0.00-0.10) 10^3/uL Sodium 146 H (136-145) mmol/L Potassium 3.5 (3.3-5.3) mmol/L Chloride 100 (98-115) mmol/L Carbon Dioxide 30.3 (21.0-32.0) mmol/L Anion Gap 19.2 H (5-15) mmol/L BUN 10 (6-25) mg/dL Creatinine 0.74 (0.51-1.17) mg/dL Est Cr Clr Drug Dosing TNP Estimated GFR (MDRD) > 60 mL/min Glucose 122 mg/dL Calcium 7.4 L (8.7-10.3) mg/dL Total Bilirubin 0.4 (0.2-1.0) mg/dL AST 22 (15-37) U/L ALT 27 (12-78) U/L Alkaline Phosphatase 60 (46-116) IU/L Total Protein 7.1 (6.4-8.2) g/dL Albumin 3.53 (3.00-4.80) g/dL Meds: Medications Generic Name Dose Route Start Last Admin Trade Name Freq PRN Reason Stop Dose Admin Sodium Chloride 5 ml 03/23/18 18:12 Syrex Flush FLUSH Q8HR PRN Keep Vein Open Discontinued Medications Generic Name Dose Route Start Last Admin Trade Name Freq PRN Reason Stop Dose Admin Sodium Chloride 1,000 mls @ 999 mls/hr 03/23/18 18:12 03/23/18 18:10 Normal Saline IV 03/23/18 19:12 999 mls/hr .BOLUS ONE Administration Ondansetron HCl 4 mg 03/23/18 18:12 03/23/18 18:17 Zofran IVPUSH 03/23/18 18:13 4 mg ONETIME ONE Administration - Re-Assessments/Exams Free Text/Narrative Re-Assessment/Exam: 03/23/18 19:10 patient afebrile, nontoxic appearing, vital signs stable, orthostatics improved after 1 L normal saline. Patient ambulating without difficulty. We'll have patient follow-up at the clinic. 03/23/18 19:17 Departure - Departure Time of Disposition: 19:19 Disposition: Home, Self-Care 01 Condition: Good Clinical Impression: Generalized weakness, Dizziness - Discharge Information Instructions: Dizziness, [id number], Weakness, [id number] Referrals: Lew Gonzalez MD [Primary Care Provider] - Forms: ED Department Discharge Additional Instructions: Follow-up at [facility] in 1-2 days. Return to emergency room sooner if symptoms continue or worsen. - My Orders Last 24 Hours: My Active Orders 03/23/18 18:12 Peripheral IV Care [RC] . DIRECTED Sodium Chloride 0.9% [Syrex Flush] 5 ml FLUSH Q8HR PRN Peripheral IV Insertion Adult [OM.PC] Routine 03/23/18 19:18 Ondansetron [Zofran ODT] 4 mg PO ONETIME ONE - Assessment/Plan Last 24 Hours: My Active Orders 03/23/18 18:12 Peripheral IV Care [RC] . DIRECTED Sodium Chloride 0.9% [Syrex Flush] 5 ml FLUSH Q8HR PRN Peripheral IV Insertion Adult [OM.PC] Routine 03/23/18 19:18 Ondansetron [Zofran ODT] 4 mg PO ONETIME ONE Assessment:: Dizziness, weakness Plan: Follow-up at [facility]
[2018-03-23] MEDS: Ondansetron 4 MG Tab.DIS PO ONE (19:24)
== END 2018-03-23 19:29 | disposition home or self-care (01) ==
LOC: KA.ED 17:15
DX: R53.1 Weakness (principal); R42 Dizziness and giddiness; R11.2 Nausea with vomiting, unspecified; F17.210 Nicotine dependence, cigarettes, uncomplicated; Z79.84 Long term (current) use of oral hypoglycemic drugs; Z79.899 Other long term (current) drug therapy; I10 Essential (primary) hypertension; E11.9 Type 2 diabetes mellitus without complications; Z88.1 Allergy status to other antibiotic agents
CPT/HCPCS: 36415; 80053; 85025; 96361; 96374; 99284; A9270-GY; J2405; J7030

== ENCOUNTER 2018-08-25 16:54 | Emergency (ER) | payer MEDICARE, OTHER ==
[2018-08-25 17:25] VITALS: BP 142/84
[2018-08-25] MEDS: Sodium Chloride 0.9% 1,000 ML IV ONE (17:25)
[2018-08-25] MEDS: Sodium Chloride 0.9% 10 ML Syringe FLUSH PRN (17:25)
[2018-08-25 17:52] LABS: ANION GAP 16.1 mmol/L (5-15); CHLORIDE,CL 99 mmol/L (98-115); SODIUM,NA 142 mmol/L (136-145)
[2018-08-25] MEDS: Potassium Chloride 20 MEQ Tab.ER PO ONE (18:09)
--- NOTE | 2018-08-25 18:10 | EDM.PDOC ---
ED HPI GENERAL MEDICAL PROBLEM - General Chief Complaint: General Stated Complaint: NUMBNESS IN FEET AND HANDS Time Seen by Provider: 08/25/18 17:08 Source of Information: Reports: Patient History Limitations: Reports: No Limitations - History of Present Illness INITIAL COMMENTS - FREE TEXT/NARRATIVE: Patient is a 58-year-old gentleman who presents to the emergency department this afternoon with a complaint of bilateral upper and lower extremity numbness without weakness. Patient initially presented to the [facility], however he was late for his appointment so they sent him to the emergency department. Patient states symptoms have been going on for several days. Does have a history of diabetes and taking both insulin and oral medication. However, he does not check his blood glucose levels. Patient denies chest pain, shortness of breath, abdominal pain, nausea, vomiting, diarrhea, headache, or fever. Onset: Gradual Duration: Day(s): Location: Reports: Upper Extremity, Left, Upper Extremity, Right, Lower Extremity, Left, Lower Extremity, Right Quality: Reports: Other (Numbness in extremities) Improves with: Reports: None Worsens with: Reports: Cold Therapy Associated Symptoms: Reports: No Other Symptoms. Denies: Chest Pain, Fever/ Chills, Nausea/Vomiting, Shortness of Breath - Related Data Allergies Allergy/AdvReac Type Severity Reaction Status Date / Time gentamicin sulfate Allergy Swollen Verified 08/25/18 17:30 [From Garamycin] Eyes Home Meds: Home Meds Ipratropium/Albuterol Sulfate [Duoneb 0.5 MG-3 MG/3 ML] 3 ml IH ASDIRECTED PRN 09/20/13 [History] Omeprazole 40 mg PO 0700 09/20/13 [History] Probiotic Gold Extra Strength 1 cap PO BID 09/20/13 [History] Calcium Carbonate [Calcium] 600 mg PO BIDMEALS 12/05/14 [History] Gabapentin [Neurontin] 300 mg PO BID 12/05/14 [History] metFORMIN [Glucophage] 750 mg PO BIDMEALS 12/05/14 [History] Carvedilol [Coreg] 12.5 mg PO BIDMEALS 09/16/16 [History] Cyclobenzaprine [Flexeril] 10 - 20 mg PO BEDTIME PRN 09/16/16 [History] Losartan/Hydrochlorothiazide [Losartan-HCTZ 50-12.5 MG] 1 each PO DAILY [History] traZODone 75 mg PO BEDTIME 09/16/16 [History] Acetaminophen [Tylenol Extra Strength] 1,000 tab PO BID 01/21/17 [History] Cholecalciferol (Vitamin D3) [Vitamin D3] 10,000 unit PO DAILY 01/21/17 [History ] Multivitamin with Minerals [Multiple Vitamin] 1 tab PO DAILY 01/21/17 [History] amLODIPine [Norvasc] 10 mg PO DAILY 01/21/17 [History] Aspirin [Ecotrin] 325 mg PO DAILY 09/09/17 [History] atorvaSTATin [Lipitor] 10 mg PO BEDTIME 09/09/17 [History] Dicyclomine [Bentyl] 20 mg PO TID #60 cap 09/11/17 [Rx] Denosumab [Prolia] 1 ml SUBCUT ASDIRECTED 03/09/18 [History] Sertraline [Zoloft] 50 mg PO DAILY 03/10/18 [History] Potassium Chloride [Klor-Con M20] 20 meq PO BID 03/23/18 [History] Past Medical History HEENT History: Reports: Impaired Vision Cardiovascular History: Reports: High Cholesterol, Hypertension Respiratory History: Reports: COPD Gastrointestinal History: Reports: Chronic Diarrhea, GERD, Irritable Bowel Syndrome Musculoskeletal History: Reports: Osteoporosis Neurological History: Reports: Concussion Psychiatric History: Reports: Depression Endocrine/Metabolic History: Reports: Diabetes, Type II - Infectious Disease History Infectious Disease History: Reports: Chicken Pox, Measles, Mumps - Past Surgical History HEENT Surgical History: Reports: Cataract Surgery Cardiovascular Surgical History: Reports: None Respiratory Surgical History: Reports: None GI Surgical History: Reports: Cholecystectomy Endocrine Surgical History: Reports: None Musculoskeletal Surgical History: Reports: Arthroscopic Procedure Other Musculoskeletal Surgeries/Procedures:: torn ligaments, wrist Social & Family History - Family History Family Medical History: Noncontributory Endocrine/Metabolic: Reports: Diabetes, type II - Caffeine Use Caffeine Use: Reports: Coffee, Energy Drinks, Soda, Tea - Living Situation & Occupation Living situation: Reports: Single, with Family Occupation: Other ED ROS GENERAL - Review of Systems Review Of Systems: ROS reveals no pertinent complaints other than HPI. Constitutional: Reports: No Symptoms HEENT: Reports: No Symptoms Respiratory: Reports: No Symptoms Cardiovascular: Reports: No Symptoms Endocrine: Reports: No Symptoms GI/Abdominal: Reports: No Symptoms : Reports: No Symptoms Musculoskeletal: Reports: No Symptoms Skin: Reports: No Symptoms Neurological: Reports: Numbness (Bilateral upper and lower extremities) Psychiatric: Reports: No Symptoms Hematologic/Lymphatic: Reports: No Symptoms Immunologic: Reports: No Symptoms ED EXAM, GENERAL - Physical Exam Exam: See Below Exam Limited By: No Limitations General Appearance: Alert, WD/WN, No Apparent Distress Eye Exam: Bilateral Eye: Normal Inspection Nose: Normal Inspection, Normal Mucosa, No Blood Throat/Mouth: Normal Inspection, Normal Oropharynx, No Airway Compromise Head: Atraumatic, Normocephalic Neck: Normal Inspection, Supple Respiratory/Chest: No Respiratory Distress, Lungs Clear, Normal Breath Sounds, No Accessory Muscle Use, Chest Non-Tender Cardiovascular: No Murmur, Tachycardia GI/Abdominal: Normal Bowel Sounds, Soft, Non-Tender, No Organomegaly, No Distention, No Abnormal Bruit, No Mass Back Exam: Normal Inspection. No: CVA Tenderness (L), CVA Tenderness (R) Extremities: Normal Inspection, Normal Range of Motion, Non-Tender, No Pedal Edema, Normal Capillary Refill Neurological: Alert, Oriented, CN II-XII Intact, Normal Cognition, Normal Gait, No Motor/Sensory Deficits Psychiatric: Normal Affect, Normal Mood Skin Exam: Warm, Dry, Intact, Normal Color, No Rash Lymphatic: No Adenopathy Course - Vital Signs Last Recorded V/S: Last Vital Signs Temp 97.4 F 08/25/18 16:57 Pulse 110 H 08/25/18 18:18 Resp 19 08/25/18 18:18 BP 142/84 H 08/25/18 16:57 Pulse Ox 92 L 08/25/18 16:57 - Orders/Labs/Meds Orders: Active Orders 24 hr Category Date Time Status Peripheral IV Care [RC] . DIRECTED Care 08/25/18 17:09 Ordered Sodium Chloride 0.9% [Saline Flush] Med 08/25/18 17:09 Ordered 10 ml FLUSH Q8HR PRN Peripheral IV Insertion Adult [OM.PC] Routine Oth 08/25/18 17:09 Ordered Medication Orders Sodium Chloride (Saline Flush) 10 ml FLUSH Q8HR PRN PRN Reason: keep vein open Last Admin: 08/25/18 17:25 Dose: 10 ml Labs: Laboratory Tests 08/25/18 08/25/18 08/25/18 Range/Units 17:25 17:25 17:58 WBC 10.93 H (5.00-10.00) 10^3/uL RBC 5.02 (4.50-6.00) 10^6/uL Hgb 14.6 (13.0-17.0) g/dL Hct 43.7 (40.0-52.0) % MCV 87.1 (82.0-92.0) fL MCH 29.1 (27.0-31.0) pg MCHC 33.4 (32.0-36.0) g/dL RDW 14.9 H (11.5-14.5) % Plt Count 354 (150-400) 10^3/uL MPV 9.9 (7.4-10.4) fL Immature Gran % (Auto) 0.2 (0.0-5.0) % Neut % (Auto) 59.6 (50.0-70.0) % Lymph % (Auto) 31.2 (20.0-40.0) % [place] % (Auto) 7.1 (2.0-8.0) % Eos % (Auto) 1.6 (1.0-3.0) % Baso % (Auto) 0.3 (0.0-1.0) % Immature Gran # (Auto) 0.02 (0.00-0.50) 10^3/uL Neut # (Auto) 6.52 (2.50-7.00) 10^3/uL Lymph # (Auto) 3.41 (1.00-4.00) 10^3/uL [place] # (Auto) 0.78 (0.10-0.80) 10^3/uL Eos # (Auto) 0.17 (0.10-0.30) 10^3/uL Baso # (Auto) 0.03 (0.00-0.10) 10^3/uL Sodium 142 (136-145) mmol/L Potassium 2.9 L (3.3-5.3) mmol/L Chloride 99 (98-115) mmol/L Carbon Dioxide 29.8 (21.0-32.0) mmol/L Anion Gap 16.1 H (5-15) mmol/L BUN 13 (6-25) mg/dL Creatinine 0.79 (0.51-1.17) mg/dL Est Cr Clr Drug Dosing 87.58 mL/min Estimated GFR (MDRD) > 60 mL/min Glucose 88 (75 - 99) mg/dL Calcium 6.7 L (8.7-10.3) mg/dL Total Bilirubin 0.4 (0.2-1.0) mg/dL AST 17 (15-37) U/L ALT 22 (12-78) U/L Alkaline Phosphatase 72 (46-116) IU/L Total Protein 7.4 (6.4-8.2) g/dL Albumin 4.04 (3.00-4.80) g/dL Specimen Type Urinvoid Urine Color Light yellow (YELLOW) Urine Appearance Clear (CLEAR) Urine pH 7.0 (5.0-9.0) Ur Specific [place] 1.010 (1.005-1.030) Urine Protein Negative (NEGATIVE) mg/dL Urine Glucose (UA) Negative (NEGATIVE) mg/dL Urine Ketones Negative (NEGATIVE) mg/dL Urine Occult Blood Negative (NEGATIVE) Urine Nitrite Negative (NEGATIVE) Urine Bilirubin Negative (NEGATIVE) Urine Urobilinogen 0.2 (0.2-1.0) E.U./dL Ur Leukocyte Esterase Negative (NEGATIVE) Urine RBC 0-5 (0-5) /HPF Urine WBC 0-5 (0-5) /HPF Ur Epithelial Cells Occasional /LPF Urine Bacteria Not seen (NONE TO FEW) /HPF Meds: Medications Generic Name Dose Route Start Last Admin Trade Name Freq PRN Reason Stop Dose Admin Sodium Chloride 10 ml 08/25/18 17:09 08/25/18 17:25 Saline Flush FLUSH 10 ml Q8HR PRN Administration keep vein open Discontinued Medications Generic Name Dose Route Start Last Admin Trade Name Freq PRN Reason Stop Dose Admin Sodium Chloride 1,000 mls @ 999 mls/hr 08/25/18 17:09 08/25/18 17:25 Normal Saline IV 08/25/18 18:09 999 mls/hr .BOLUS ONE Administration Potassium Chloride 40 meq 08/25/18 17:54 08/25/18 18:09 Klor-Con M20 PO 08/25/18 17:55 40 meq ONETIME ONE Administration - Re-Assessments/Exams Free Text/Narrative Re-Assessment/Exam: 08/25/18 18:29 Patient afebrile, vital signs stable, symptoms subsiding and patient is nontoxic appearing. Patient denies chest pain, shortness of breath, headache. Patient was given 40 mEq of potassium for replacement. Patient will follow-up at [facility] tomorrow 08/25/18 18:33 Departure - Departure Time of Disposition: 18:30 Disposition: Home, Self-Care 01 Condition: Good Clinical Impression: Hypokalemia, Electrolyte imbalance, Numbness and tingling of upper and lower extremities of both sides - Discharge Information Instructions: Potassium Content of Foods, Hypokalemia, Paresthesia, Easy-to- Read Referrals: Tano Calero, [employer] [Primary Care Provider] - Forms: ED Department Discharge Additional Instructions: Follow-up at [facility] tomorrow. Return to emergency department sooner if symptoms continue or worsen. Take Medication as prescribed. - My Orders Last 24 Hours: My Active Orders 08/25/18 17:09 Peripheral IV Care [RC] . DIRECTED Sodium Chloride 0.9% [Saline Flush] 10 ml FLUSH Q8HR PRN Peripheral IV Insertion Adult [OM.PC] Routine - Assessment/Plan Last 24 Hours: My Active Orders 08/25/18 17:09 Peripheral IV Care [RC] . DIRECTED Sodium Chloride 0.9% [Saline Flush] 10 ml FLUSH Q8HR PRN Peripheral IV Insertion Adult [OM.PC] Routine Assessment:: Hypokalemia Plan: Follow-up at [facility] tomorrow
== END 2018-08-25 18:40 | disposition home or self-care (01) ==
LOC: KA.ED 16:54
DX: E87.6 Hypokalemia (principal); E87.8 Other disorders of electrolyte and fluid balance, not elsewhere classified; R20.0 Anesthesia of skin; R20.2 Paresthesia of skin; I10 Essential (primary) hypertension; E11.9 Type 2 diabetes mellitus without complications; J44.9 Chronic obstructive pulmonary disease, unspecified; Z88.1 Allergy status to other antibiotic agents
CPT/HCPCS: 36415; 80053; 81001; 85025; 96360; 99284; A9270-GY; J7030

== ENCOUNTER 2021-06-03 21:25 | Emergency (ER) | payer MEDICARE, OTHER ==
[2021-06-03 22:31] LABS: ANION GAP 16.9 mmol/L (5-15); CHLORIDE,CL 103 mmol/L (98-107); SODIUM,NA 143 mmol/L (136-145)
--- NOTE | 2021-06-03 22:37 | EDM.PDOC ---
ED HPI GENERAL MEDICAL PROBLEM - General Chief Complaint: General Stated Complaint: black stools and stomach pain Time Seen by Provider: 06/03/21 22:07 Source of Information: Reports: Patient History Limitations: Reports: No Limitations - History of Present Illness INITIAL COMMENTS - FREE TEXT/NARRATIVE: Patient presents with central abdominal pain and complaint of black stools. He has diagnoses of Colitis and IBS. He has diarrhea usually 6 times a day for many years. He last passed stool/diarrhea about 1 hour before ER arrival, again about 6 today. He has been passing gas he says; but feels a little bloated. He has abdominal pain 5/10 everyday, also for many years. Today it is 7/10. He has had black stools for 2 months and was in [facility] a couple days, one month ago for evaluation of this with upper and lower endoscopies. No source of bleeding was found. He was taking iron for quite awhile but was found recently that the iron tablets have been accumulating in his stomach and not dissolving, he says. 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: Reports: NSAIDS Abdomen Pain Score (Numeric/FACES): 7 - Related Data Allergies Allergy/AdvReac Type Severity Reaction Status Date / Time gentamicin sulfate Allergy Swollen Verified 06/03/21 22:11 [From Garamycin] Eyes Home Meds: Home Meds metFORMIN [Glucophage] 1,000 mg PO BIDMEALS 12/05/14 [History] Carvedilol [Coreg] 12.5 mg PO BIDMEALS 09/16/16 [History] Cyclobenzaprine [Flexeril] 10 mg PO TID PRN 09/16/16 [History] traZODone 50 mg PO BEDTIME 09/16/16 [History] Acetaminophen [Tylenol Extra Strength] 1,000 mg PO BID 01/21/17 [History] Multivitamin with Minerals [Multiple Vitamin] 1 tab PO DAILY 01/21/17 [History] Sertraline [Zoloft] 50 mg PO DAILY 03/10/18 [History] Albuterol/Ipratropium [DuoNeb 3.0-0.5 MG/3 ML] 3 ml INH ASDIRECTED PRN 11/25/19 [History] Albuterol/Ipratropium [DuoNeb 3.0-0.5 MG/3 ML] 3 ml INH BID 11/25/19 [History] Alendronate Sodium [Fosamax] 70 mg PO Q7D 11/25/19 [History] Bismuth Subsalicylate [Pepto-Bismol] 30 ml PO TID PRN 11/25/19 [History] Calcium Citrate/Vitamin D3 [Calcium Citrate - Vit D Tablet] 1 tab PO BID 11/25/19 [History] Cholecalciferol (Vitamin D3) [Vitamin D3] 1,000 unit PO DAILY 11/25/19 [History] Fluticasone/Vilanterol [Breo Ellipta 100-25 MCG Inhalation Kit] 1 puff INH DAILY 11/25/19 [History] Gabapentin [Neurontin] 300 mg PO BID 11/25/19 [History] Insuln Asp Prot/Insulin Aspart [NovoLOG Mix 70-30] 24 unit SUBCUT DAILY 11/25/19 [History] Losartan [Cozaar] 100 mg PO BEDTIME 11/25/19 [History] Magnesium Oxide [Magnesium] 1,000 mg PO BID 11/25/19 [History] Non-Formulary Medication [NF Drug] 1 applic TOP ASDIRECTED PRN 11/25/19 [History] Pantoprazole Sodium [Protonix] 40 mg PO BID 11/25/19 [History] atorvaSTATin Calcium [Lipitor] 40 mg PO BEDTIME 11/25/19 [History] Aspirin 81 mg PO DAILY 06/09/20 [History] Acetylcysteine [Mucomyst 10%] 400 mg NEB BID #60 vial 06/10/20 [Rx] Magnesium Oxide 800 mg PO TID #180 tablet 06/27/20 [Rx] Ticagrelor [Brilinta] 90 mg PO BID 08/02/20 [History] Past Medical History HEENT History: Reports: Cataract, Impaired Vision, Sinusitis Other HEENT History: Patient wears glasses. Cardiovascular History: Reports: Arrhythmia, CAD, Cardiomyopathy, Heart Failure, High Cholesterol, Hypertension, SOB on Exertion, Stents, Other (See Below) Other Cardiovascular History: Sinus tachycardia, brief episode of ventricular tachycardia, PACs, and PVC's. Positive Cardiolite stress test on 10/06/2019 for inferior wall cardiac ischemia with subsequent PTCA/stent x1 as below. No fur ther work-up. Severe cardiomyopathy with ejection fraction of only 25-30% at time of last echocardiogram in March 2020 as below. Left atrial enlargement and mild left ventricular hypertrophy by echocardiogram. Respiratory History: Reports: Bronchitis, Recurrent, COPD, Intubation, Previous, Pneumonia, Recurrent, Other (See Below) Other Respiratory History: Nocturnal O2 dependent COPD Gastrointestinal History: Reports: Bowel Obstruction, Cholelithiasis, Chronic Diarrhea, GERD, Hemorrhoids, Irritable Bowel Syndrome, Other (See Below) Other Gastrointestinal History: Recurrent mild borderline small and large bowel ileus with additional history of colitis. Genitourinary History: Reports: BPH Musculoskeletal History: Reports: Arthritis, Back Pain, Chronic, Neck Pain, Chronic, Osteoarthritis, Osteoporosis Other Musculoskeletal History: Multiple vertebral body compression fractures, including closed wedge compression fracture T7 requiring surgery as below. Right shoulder proximal humeral fracture and dislocation on 03/26/2018 with no subsequent surgery. Neurological History: Reports: Concussion, Headaches, Chronic, Head Trauma, Neuropathy, Diabetic, Vertigo, Other (See Below) Other Neuro History: History of recurrent head concussions including in July 2014. Cerebral microvascular disease by CT scans. Psychiatric History: Reports: Anxiety, Depression Endocrine/Metabolic History: Reports: Diabetes, Type II, Hypokalemia, Hypomagnesemia, IDDM, Obesity/BMI 30+, Osteopenia, Osteoporosis, Vitamin D Deficiency, Other (See Below) Other Endocrine/Metabolic History: Hypocalcemia. Hematologic History: Reports: None Immunologic History: Reports: None Oncologic (Cancer) History: Reports: None Dermatologic History: Reports: Eczema - Infectious Disease History Infectious Disease History: Reports: Chicken Pox, Measles, Mumps - Past Surgical History Head Surgeries/Procedures: Reports: None HEENT Surgical History: Reports: Cataract Surgery, Oral Surgery, Other (See Below) Other HEENT Surgeries/Procedures: Multiple teeth extractions with no current partials or dentures. Bilateral cataract surgery in about 2017. Cardiovascular Surgical History: Reports: Coronary Artery Stent, Percutaneous Transluminal Angioplasty, Other (See Below) Other Cardiovascular Surgeries/Procedures: PTCA/stent x1 in November 2019. Respiratory Surgical History: Reports: None GI Surgical History: Reports: Cholecystectomy, Colonoscopy, EGD, Other (See Below) Other GI Surgeries/Procedures: Last colonoscopy on 09/17/2016 with previous evaluation in about 2013. Possible previous flexible sigmoidoscopy in August 2016? Male Surgical History: Reports: Circumcision, Other (See Below) Other Male Surgeries/Procedures: Circumcision as an infant Endocrine Surgical History: Reports: None Neurological Surgical History: Reports: Laminectomy, Thoracic Spine, Vertebroplasty, Other (See Below) Other Neurological Surgeries/Procedures: Laminectomy of T2-T4 on 03/15/2014. Kyphoplasty of T7 in 2019. Musculoskeletal Surgical History: Reports: Arthroscopic Procedure, Other (See Below) Other Musculoskeletal Surgeries/Procedures:: Left wrist surgery x2 in 2006 for repair of ligamental tears. Oncologic Surgical History: Reports: None Dermatological Surgical History: Reports: Skin Graft, Other (See Below) - Past Imaging History Past Imaging History: Reports: Angiography (Heart catheterization in November 2019.), Cardiac Echo (04/17/2020 with ejection fraction of 25-30% and findings as above.), Carotid US (06/22/2019), CAT Scan (CT of the head on 11/27/2019 and 05/24/2019. CT of the abdomen and pelvis on 11/11/2019, 03/24/2018, and 01/22/2017. CT of the chest on 10/14/2019. CT of the right arm on 03/26/2018.), DEXA Scan (Last on 10/15/2018.), MRI (Thoracic spine 04/11/2019, 08/02/2015, and 01/19/2014. MRI of the brain on 10/12/2014. MRI of the lumbar and cervical spine on 01/12/2014.), Stress Testing (Cardiolite stress test on 10/06/2019 + for inferior wall ischemia and ejection fraction of only 15%, which may have been artifactual?), Ultrasound (Gallbladder ultrasound on 08/16/2013.) Social & Family History - Family History Family Medical History: No Pertinent Family History Cardiac: Reports: CAD, Heart Failure, Hypertension, [place] Respiratory: Reports: COPD, Sleep Apnea, Other (See Below) Other Respiratory Family Hisory: Brother with sleep apnea. Mother with history of COPD rather than asthma with no history of tobacco use. GI: Reports: None : Reports: None OBGYN: Reports: None Musculoskeletal: Reports: None Neurological: Reports: None Psychiatric: Reports: None Endocrine/Metabolic: Reports: Diabetes, type II, IDDM, Other (See Below) Other Endocrine/Metabolic Family History: Brother with AODM. Father with IDDM. Hematologic: Reports: None Immunologic: Reports: None Dermatologic: Reports: None Oncologic: Reports: Leukemia, Liver, Pancreatic, Other (See Below) Other Oncologic Family History: Sister with fatal leukemia in her 50s. Brother with fatal liver and pancreatic cancer at age 68. 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 Early half-way secondary to previous left wrist injury.) ED ROS GENERAL - Review of Systems Review Of Systems: See Below Constitutional: Denies: Fever, Chills, Weakness, Decreased Appetite HEENT: Denies: Ear Pain, Throat Pain, Vision Change Respiratory: Denies: Shortness of Breath, Cough Cardiovascular: Denies: Chest Pain, Lightheadedness, Syncope GI/Abdominal: Reports: Abdominal Pain, Diarrhea. Denies: Constipation, Nausea, Vomiting : Denies: Dysuria, Flank Pain Musculoskeletal: Denies: Neck Pain, Shoulder Pain, Arm Pain, Back Pain, Hand Pain Skin: Denies: Cyanosis, Jaundice, Mottled, Pallor, Diaphoresis Neurological: Denies: Confusion, Dizziness, Seizure, Syncope, Trouble Speaking, Difficulty Walking Psychiatric: Denies: Agitation, Anxiety Hematologic/Lymphatic: Reports: Other (he doesn't know if he has had anemia or not) ED EXAM, GI/ABD - Physical Exam Exam: See Below Exam Limited By: No Limitations General Appearance: Alert, WD/WN, No Apparent Distress Eyes: Bilateral: Normal Appearance, EOMI Ears: Normal External Exam, Hearing Grossly Normal Nose: Normal Inspection, No Blood Throat/Mouth: Normal Inspection, Normal Lips, Normal Voice, No Airway Compromise Head: Atraumatic, Normocephalic Neck: Normal Inspection, Full Range of Motion Respiratory/Chest: No Respiratory Distress, Lungs Clear, Normal Breath Sounds Cardiovascular: Regular Rate, Rhythm, No Murmur GI/Abdominal Exam: Normal Bowel Sounds, No Organomegaly, Distended (mildly), Tender (mildly in RUQ and LLQ). No: No Abnormal Bruit, Guarding, Rigid Rectal (Males) Exam: Normal Exam, Normal Rectal Tone, Prostate Normal, Heme - Stool (minimal stool sample however, it was brown in color but very small sample). No: Black Stool, Bloody Stool, Fecal Impaction, Perirectal Abscess, Prostate Nodule, Rectal Fissure, Tenderness Extremities: Normal Inspection, Normal Range of Motion Neurological: Alert, Oriented, Normal Cognition, No Motor/Sensory Deficits Psychiatric: Normal Affect, Normal Mood Skin Exam: Warm, Dry, Intact, Normal Color, No Rash Course - Vital Signs Last Recorded V/S: Last Vital Signs Temp 97 F 06/03/21 21:36 Pulse 99 06/03/21 22:42 Resp 18 06/03/21 22:42 BP 159/93 H 06/03/21 22:51 Pulse Ox 95 06/03/21 22:42 - Orders/Labs/Meds Orders: Active Orders 24 hr Category Date Time Status Abdomen 1V Flat [CR] Stat Exams 06/03/21 21:54 Ordered Labs: Laboratory Tests 06/03/21 06/03/21 Range/Units 22:05 22:05 WBC 15.78 H (5.00-10.00) 10^3/uL RBC 4.81 (4.50-6.00) 10^6/uL Hgb 13.0 D (13.0-17.0) g/dL Hct 41.3 (40.0-52.0) % MCV 85.9 (82.0-92.0) fL MCH 27.0 (27.0-31.0) pg MCHC 31.5 L (32.0-36.0) g/dL RDW 17.5 H (11.5-14.5) % Plt Count 280 (150-400) 10^3/uL MPV 9.5 (7.4-10.4) fL Immature Gran % (Auto) 0.3 (0.0-5.0) % Neut % (Auto) 77.2 H (50.0-70.0) % Lymph % (Auto) 15.5 L (20.0-40.0) % Dunn % (Auto) 6.1 (2.0-8.0) % Eos % (Auto) 0.8 L (1.0-3.0) % Baso % (Auto) 0.1 (0.0-1.0) % Neut # (Auto) 12.18 H (2.50-7.00) 10^3/uL Lymph # (Auto) 2.45 (1.00-4.00) 10^3/uL Dunn # (Auto) 0.96 H (0.10-0.80) 10^3/uL Eos # (Auto) 0.13 (0.10-0.30) 10^3/uL Baso # (Auto) 0.02 (0.00-0.10) 10^3/uL Immature Gran # (Auto) 0.04 (0.00-0.50) 10^3/uL Sodium 143 (136-145) mmol/L Potassium 4.2 (3.5-5.1) mmol/L Chloride 103 (98-107) mmol/L Carbon Dioxide 27.3 (21.0-32.0) mmol/L Anion Gap 16.9 H (5-15) mmol/L BUN 19 H (7-18) mg/dL Creatinine 1.05 (0.51-1.17) mg/dL Est Cr Clr Drug Dosing 63.45 mL/min Estimated GFR (MDRD) > 60 mL/min Glucose 135 (70-140) mg/dL Calcium 8.3 L (8.7-10.3) mg/dL Total Bilirubin 0.4 (0.2-1.0) mg/dL AST 22 (15-37) U/L ALT 49 (14-63) U/L Alkaline Phosphatase 76 (46-116) U/L Total Protein 6.6 (6.4-8.2) g/dL Albumin 3.55 (3.40-5.00) g/dL - Re-Assessments/Exams Free Text/Narrative Re-Assessment/Exam: 06/03/21 22:52 Abdominal xray shows gas bubbles moderately in colon and SB. He has been passing stool and gas frequently without difficulty and uses Gas-X. CBC shows normal hemoglobin, WBC is 15 but at baseline of last 2 years with several comparisons. Hemoccult is negative. I don't see anything acute at all except for the gas retention; discussed that if he stops passing gas or stool he should get rechecked right away. Discussed findings and recommendations with patient. He is discharged to home in stable condition. Departure - Departure Time of Disposition: 22:47 Disposition: Home, Self-Care 01 Condition: Good Clinical Impression: Abdominal bloating - Discharge Information Forms: ED Department Discharge Additional Instructions: Drink 8 cups of water daily. Walk around for 10-20 minutes several times a day. Continue taking Gas-X. Follow up with your PCP in 2-3 days. If worsening, recheck sooner in clinic or ER as needed. Sepsis Event Note (ED) - Evaluation Sepsis Screening Result: No Definite Risk - Focused Exam Vital Signs: Vital Signs Temp Pulse Resp BP Pulse Ox 06/03/21 22:51 159/93 H 06/03/21 22:42 99 18 194/105 H 95 06/03/21 21:40 133/98 H 06/03/21 21:36 97 F 97 18 172/100 H 94 L - My Orders Last 24 Hours: My Active Orders 06/03/21 21:54 Abdomen 1V Flat [CR] Stat - Assessment/Plan Last 24 Hours: My Active Orders 06/03/21 21:54 Abdomen 1V Flat [CR] Stat
[2021-06-03 22:44] VITALS: PULSE 99
[2021-06-03 22:51] VITALS: BP 159/93
--- NOTE | 2021-06-04 07:58 | CR ---
[id number] RAD/RAD Abdomen Flat Plate 1V Exam: RAD Abdomen Flat Plate 1V Clinical Data: ABDOMINAL PAIN COMPARISON: CORRELATION IS MADE WITH THE CAT SCAN OF JANUARY 22, 2017 FINDINGS: There is moderate large and small bowel distention The gallbladder has been removed There are vascular calcifications It appears that the patient has had a lower thoracic kyphoplasty IMPRESSION: MODERATE ILEUS Ryan Grayson MD 06/04/21 0757 Thank you for allowing us to participate in the care of your patient.
== END 2021-06-03 22:55 | disposition home or self-care (01) ==
LOC: KA.ED 21:25
DX: R14.0 Abdominal distension (gaseous) (principal); I25.10 Atherosclerotic heart disease of native coronary artery without angina pectoris; I11.0 Hypertensive heart disease with heart failure; I50.9 Heart failure, unspecified; E78.00 Pure hypercholesterolemia, unspecified; J44.9 Chronic obstructive pulmonary disease, unspecified; K21.9 Gastro-esophageal reflux disease without esophagitis; E66.9 Obesity, unspecified; Z68.25 Body mass index [BMI] 25.0-25.9, adult; Z72.0 Tobacco use; Z79.82 Long term (current) use of aspirin; Z88.1 Allergy status to other antibiotic agents; Z88.8 Allergy status to other drugs, medicaments and biological substances; Z79.4 Long term (current) use of insulin; Z79.899 Other long term (current) drug therapy; Z79.02 Long term (current) use of antithrombotics/antiplatelets
CPT/HCPCS: 36415; 74018; 80053; 82270; 85025; 99284; 99284-25

== ENCOUNTER 2024-01-26 06:59 | Day surgery (SDC) | payer MEDICARE, OTHER ==
[2024-01-26] MEDS ORDERED: Sodium Chloride 0.9% 10 ML Syringe FLUSH PRN ×2 (07:00)
[2024-01-26] MEDS: Sodium Chloride 0.9% 1,000 ML IV SCH (07:41)
[2024-01-26] MEDS ORDERED: Propofol 200 MG/20 ML SDV ONE (07:48)
[2024-01-26] MEDS ORDERED: Midazolam 1 MG/ML 2 ML SDV ONE (07:48)
[2024-01-26] MEDS ORDERED: Lidocaine 2% 100 MG/5 ML Syringe ONE (07:49)
[2024-01-26] MEDS ORDERED: Glycopyrrolate 0.2 MG/ML SDV ONE (07:49)
[2024-01-26 11:30] VITALS: BP 148/67; PULSE 76
== END 2024-01-26 11:27 | disposition home or self-care (01) ==
LOC: KA.SDS 06:59
PROVIDERS: ATTEND Family Medicine
DX: K63.5 Polyp of colon (principal); K64.8 Other hemorrhoids; K64.4 Residual hemorrhoidal skin tags; E11.51 Type 2 diabetes mellitus with diabetic peripheral angiopathy without gangrene; E11.42 Type 2 diabetes mellitus with diabetic polyneuropathy; I11.0 Hypertensive heart disease with heart failure; I50.22 Chronic systolic (congestive) heart failure; E66.3 Overweight; K21.9 Gastro-esophageal reflux disease without esophagitis; J44.9 Chronic obstructive pulmonary disease, unspecified; Z87.891 Personal history of nicotine dependence; Z79.4 Long term (current) use of insulin; Z79.84 Long term (current) use of oral hypoglycemic drugs; Z79.82 Long term (current) use of aspirin; Z79.899 Other long term (current) drug therapy
CPT/HCPCS: 00813; 82947; J2250; J2704; J3490; J7030